=== PATIENT | female | born 1940 | race Caucasian/White ===

== ENCOUNTER → 2016-02-21 | Outpatient (CLI) | payer BC ==
[~2016-02-21] MED LIST: ASPI1CHW26 PO; CLTP PO; CLX20 PO; CZR50 PO; GLUCTAB7 PO; HYZ/50125 PO; LEVO88TA4 PO; LUTE15CA PO; MEGA B PO; MULT-190 PO; MULT-506 PO; OMEG10007 PO; POTA-327 PO; PRAV20TA PO
--- NOTE | 2016-02-21 13:46 | MAMMOGRAPHY REPORT ---
BILATERAL DIGITAL SCREENING MAMMOGRAM WITH CAD: 02/21/2016 CLINICAL HISTORY: Routine screening. Patient has no complaints. TECHNIQUE: Current study was also evaluated with a Computer Aided Detection (CAD) system. Bilatera l CC and MLO views were obtained. COMPARISON: Comparison is made to exams dated: 01/04/2015 mammogram, 12/14/2012 mammogram, 01/04/20 14 mammogram, 11/14/2011 mammogram, 11/07/2010 mammogram, and 11/06/2009 mammogram - [facility]. BREAST COMPOSITION: The tissue of both breasts is almost entirely fatty. FINDINGS: No suspicious masses, calcifications, or areas of architectural distortion are noted in e ither breast. There has been no significant interval change compared to prior exams. IMPRESSION: ACR BI-RADS CATEGORY 1: NEGATIVE There is no mammographic evidence of malignancy. A 1 year screening mammogram is recommended. The p atient will receive written notification of the results. Approximately 10% of breast cancers are not detected with mammography. A negative mammographic repor t should not delay biopsy if a clinically suggestive mass is present. Sravanthi Bey M.D. ah/:02/21/2016 12:22:27 Prick Stitcher: Li SMITH(Zaar)(M), [facility] letter sent: Normal 1/2 BI-RADS Code: ACR BI-RADS Category 1: Negative
== END | disposition home or self-care (01) ==
LOC: C.MAMM 10:47
PROVIDERS: ATTEND Family Medicine
DX: Z12.31 Encounter for screening mammogram for malignant neoplasm of breast (principal)

== ENCOUNTER → 2017-02-23 | Outpatient (CLI) | payer BC ==
[~2017-02-23] MED LIST changes: -CLTP PO; -CZR50 PO; -GLUCTAB7 PO; +LEVO100T7 PO; -LEVO88TA4 PO; -LUTE15CA PO; -MEGA B PO; -MULT-190 PO; -OMEG10007 PO
--- NOTE | 2017-02-23 15:09 | MAMMOGRAPHY REPORT ---
BILATERAL DIGITAL SCREENING MAMMOGRAM TOMOSYNTHESIS WITH CAD: 02/23/2017 CLINICAL HISTORY: Routine screening. Patient has no complaints. TECHNIQUE: Breast tomosynthesis in addition to standard 2D mammography was performed. Current study was also evaluated with a Computer Aided Detection (CAD) system. COMPARISON: Comparison is made to exams dated: 02/21/2016 mammogram, 01/04/2015 mammogram, 01/03/2014 mammogram, 12/14/2012 mammogram, 11/14/2011 mammogram, and 11/07/2010 mammogram - [facility]. BREAST COMPOSITION: The tissue of both breasts is almost entirely fatty. FINDINGS: There are minimal vascular calcifications and a few round benign-appearing microcalcificati ons in the breasts. No suspicious mass, architectural distortion or cluster of suspicious microcalci fications is seen. IMPRESSION: ACR BI-RADS CATEGORY 1: NEGATIVE There is no mammographic evidence of malignancy. A 1 year screening mammogram is recommended. The pa tient will receive written notification of the results. Approximately 10% of breast cancers are not detected with mammography. A negative mammographic report should not delay biopsy if a clinically suggestive mass is present. Reina Figueroa M.D. ay/:02/23/2017 13:28:49 Quality Control Manager: Li SMITH(Zara)(M), [facility] letter sent: Normal 1/2 BI-RADS Code: ACR BI-RADS Category 1: Negative
== END | disposition home or self-care (01) ==
LOC: C.MAMM 11:42
PROVIDERS: ATTEND Family Medicine
DX: Z12.31 Encounter for screening mammogram for malignant neoplasm of breast (principal)

== ENCOUNTER → 2017-04-21 | Outpatient (CLI) | payer BC ==
--- NOTE | 2017-04-21 15:00 | DIAGNOSTIC IMAGING REPORT ---
CHEST 2 VIEWS ROUTINE CLINICAL HISTORY: SOB dyspnea COMPARISON STUDY: No previous studies for comparison. FINDINGS: Mild emphysematous change. The lungs are considered clear. No focal infiltrate. No significant cardiac enlargement. Moderate degenerative change thoracic spine. IMPRESSION: Mild emphysematous change. No acute process. The above report was generated using voice recognition software. It may contain grammatical, syntax or spelling errors. Electronically signed by: Trevor Taveras M.D. 04/21/2017 2:58 PM Dictated Date/Time: 04/21/2017 2:58 PM
[2017-04-21 17:00] LABS: BASO % 0.6 %; BASO ABS # 0.04 K/uL (0-0.2); EOS % 2.8 %; EOS ABS # 0.18 K/uL (0-0.5); HEMATOCRIT 39.1 % (37-47); HEMOGLOBIN 13.3 g/dL (12.0-16.0); IG# 0.01 K/uL (0.00-0.02); LYMPH % 28.9 %; LYMPH ABS # 1.85 K/uL (1.2-3.4); MEAN CELL VOLUME 88.7 fL (80-100); MEAN CORPUSCULAR HEMOGLOBIN 30.2 pg (25-34); MEAN PLATELET VOLUME 12.4 fL (7.4-10.4); MONO % 9.8 %; MONO ABS # 0.63 K/uL (0.11-0.59); NEUT % 57.7 %; PLATELET COUNT 266 K/uL (130-400); RED CELL DISTRIBUTION WIDTH CV 14.4 % (11.5-14.5); RED CELL DISTRIBUTION WIDTH SD 46.7 fL (36.4-46.3); WHITE BLOOD COUNT 6.41 K/uL (4.8-10.8)
[2017-04-21 17:09] LABS: ALT/SGPT 28 U/L (12-78); AST/SGOT 23 U/L (15-37); BLOOD UREA NITROGEN 17 mg/dl (7-18); CALCIUM 9.2 mg/dl (8.5-10.1); CARBON DIOXIDE 24 mmol/L (21-32); GLUCOSE 78 mg/dl (70-99); POTASSIUM 3.5 mmol/L (3.5-5.1); SODIUM 137 mmol/L (136-145)
[2017-04-21 17:20] LABS: ALKALINE PHOSPHATASE 90 U/L (45-117); CHOLESTEROL 166 mg/dl (0-200); LDL CHOLESTEROL CALCULATED 84 mg/dl; TOTAL PROTEIN 7.8 gm/dl (6.4-8.2)
== END | disposition home or self-care (01) ==
LOC: C.RADBC 14:29
PROVIDERS: ATTEND Physician Assistant Medical
DX: R06.02 Shortness of breath (principal); I10 Essential (primary) hypertension; E03.9 Hypothyroidism, unspecified

== ENCOUNTER → 2017-04-28 | Outpatient (CLI) | payer BC ==
[~2017-04-28] MED LIST changes: +CZR50; +LEVO88TA PO
[2017-04-28 18:09] LABS: BLOOD UREA NITROGEN 18 mg/dl (7-18); CALCIUM 9.2 mg/dl (8.5-10.1); CARBON DIOXIDE 24 mmol/L (21-32); CREATININE 0.76 mg/dl (0.60-1.20); GLUCOSE 76 mg/dl (70-99); POTASSIUM 3.8 mmol/L (3.5-5.1); SODIUM 139 mmol/L (136-145)
== END | disposition home or self-care (01) ==
LOC: C.LAB 17:09
PROVIDERS: ATTEND Physician Assistant Medical
DX: I10 Essential (primary) hypertension (principal)

== ENCOUNTER → 2017-06-09 | Outpatient (CLI) | payer BC ==
[~2017-06-09] MED LIST changes: -HYZ/50125 PO; -LEVO100T7 PO; -POTA-327 PO
== END | disposition home or self-care (01) ==
LOC: C.LAB 15:48
PROVIDERS: ATTEND Physician Assistant Medical
DX: E03.9 Hypothyroidism, unspecified (principal)

== ENCOUNTER → 2017-07-07 | Outpatient (CLI) | payer BC ==
[~2017-07-07] VITALS: Ht 158.8 cm; Wt 72.3 kg
[2017-07-07 15:58] VITALS: BP 168/84; PULSE 61; Ht 158.8 cm; Wt 72.3 kg
== END | disposition home or self-care (01) ==
LOC: C.NEUR 14:54
PROVIDERS: ATTEND Internal Medicine Pulmonary Disease
DX: G47.21 Circadian rhythm sleep disorder, delayed sleep phase type (principal); G47.00 Insomnia, unspecified

== ENCOUNTER → 2017-10-02 | Outpatient (CLI) | payer BC ==
--- NOTE | 2017-10-02 13:07 | DIAGNOSTIC IMAGING REPORT ---
L-SPINE MIN 4 VIEWS ROUTINE HISTORY: Trauma. Pain. W19.XXXA FallM54.5 Low back [id number] COMPARISON: None. FINDINGS: There is no fracture. Mild degenerative scoliosis. Degenerative disc changes throughout. No evidence for compression deformity. IMPRESSION: Considerable degenerative disc change. Scoliosis. No acute process. The above report was generated using voice recognition software. It may contain grammatical, syntax or spelling errors. Electronically signed by: Trevor Taveras M.D. 10/02/2017 1:06 PM Dictated Date/Time: 10/02/2017 1:04 PM
--- NOTE | 2017-10-02 13:11 | DIAGNOSTIC IMAGING REPORT ---
L HIP UNILATERAL 2 VIEWS CLINICAL HISTORY: W19.XXXA FallM54.5 Low back painM25.552 Left hip [id number] COMPARISON: None. DISCUSSION: Mild degenerative narrowing left hip joint space. No evidence for acetabular protrusion. Bony mineralization is normal. No lytic or blastic process. There is no evidence for soft tissue swelling. IMPRESSION: Mild degenerative narrowing left hip joint space. Otherwise negative study. The above report was generated using voice recognition software. It may contain grammatical, syntax or spelling errors. Electronically signed by: Trevor Taveras M.D. 10/02/2017 1:10 PM Dictated Date/Time: 10/02/2017 1:09 PM
--- NOTE | 2017-10-02 13:44 | DIAGNOSTIC IMAGING REPORT ---
LEFT FOOT 3 VIEWS CLINICAL HISTORY: Fall with left foot pain. FINDINGS: 3 views of the left foot are obtained. No prior studies are available for comparison at the time of dictation. The skeletal structures are osteopenic. No fracture is seen. Mild osteoarthritic change is present at the first metatarsophalangeal joint. Mild degenerative spurring is seen along the dorsal aspect of the tarsal bones. A tiny plantar calcaneal enthesophyte is noted. The overlying soft tissues are within normal limits. IMPRESSION: Osteopenia and mild degenerative change as above. No acute bony abnormality is seen. Electronically signed by: Dionisio Regalado M.D. 10/02/2017 1:43 PM Dictated Date/Time: 10/02/2017 1:42 PM
== END | disposition home or self-care (01) ==
LOC: C.RADBC 12:27
PROVIDERS: ATTEND Nurse Practitioner Adult Health
DX: M79.672 Pain in left foot (principal); W19.XXXA Unspecified fall, initial encounter; M25.552 Pain in left hip; M54.5 Low back pain; M85.872 Other specified disorders of bone density and structure, left ankle and foot; M41.9 Scoliosis, unspecified

== ENCOUNTER 2019-02-25 15:57 | Observation (INO) ==
[2019-02-25] MEDS ORDERED: SODIUM CHLORIDE 0.9% 500 ML IV ONE (16:14)
[2019-02-25 17:03] LABS: Basophils # (auto) 0.03 K/uL (0-0.2); Basophils % (auto) 0.5 %; Eosinophils % (auto) 1.8 %; Hematocrit (blood only) 39.5 % (37-47); Hemoglobin 13.4 g/dL (12.0-16.0); Immature Granulocytes # (auto) 0.01 K/uL (0.00-0.02); Immature Granulocytes % (auto) 0.2 %; Lymphocytes # (auto) 1.95 K/uL (1.2-3.4); Lymphocytes % (auto) 35.7 %; Mean Corpuscular Hgb Conc 33.9 g/dL (32-36); Mean Corpuscular Volume 91.4 fL (80-100); Mean Platelet Volume 10.5 fL (7.4-10.4); Monocytes # (auto) 0.51 K/uL (0.11-0.59); Monocytes % (auto) 9.3 %; Neutrophils # (auto) 2.86 K/uL (1.4-6.5); Neutrophils % (auto) 52.5 %; Platelet Count 295 K/uL (130-400); RDW Coefficient of Variation 13.4 % (11.5-14.5); RDW Standard Deviation 44.8 fL (36.4-46.3); Red Blood Count 4.32 M/uL (4.2-5.4); White Blood Count 5.46 K/uL (4.8-10.8)
--- NOTE | 2019-02-25 17:05 | XRay Report ---
XR chest 1V portable CLINICAL HISTORY: Atypical chest pain COMPARISON STUDY: 04/21/2017 FINDINGS: The cardiac and mediastinal contours are normal. There is no evidence of focal pulmonary co nsolidation. There is no evidence of failure. No pleural effusions are visualized.[ IMPRESSION: No active disease in the chest. ACT 112: Negative or not required by law. Electronically signed by: Leno Rosales M.D. 02/25/2019 5:04 PM
[2019-02-25 17:28] LABS: Alanine Aminotransferase 30 U/L (12-78); Albumin Level 3.4 gm/dl (3.4-5.0); Aspartate Aminotransferase 25 U/L (15-37); BUN Creatinine Ratio 19.4 (10-20); Blood Urea Nitrogen 16 mg/dl (7-18); Calcium 8.9 mg/dl (8.5-10.1); Carbon Dioxide 26 mmol/L (21-32); Chloride 110 mmol/L (98-107); Creatinine Clr Calc Pharmacy 51.2 ml/min; Est GFR (African American) 78.8; Glucose 78 mg/dl (70-99); Lipase 62 U/L (73-393); Magnesium 2.4 mg/dl (1.8-2.4); Potassium 3.6 mmol/L (3.5-5.1); Sodium 139 mmol/L (136-145)
[2019-02-25 17:39] LABS: Alkaline Phosphatase 117 U/L (45-117); Bilirubin,Total 0.5 mg/dl (0.2-1); Globulin 3.5 gm/dl (2.5-4.0); Phosphorus 3.7 mg/dl (2.5-4.9); Total Protein 6.9 gm/dl (6.4-8.2); Troponin I < 0.015 ng/ml (0-0.045)
[2019-02-25] MEDS ORDERED: OPTIRAY 320 125ml IV PRN (17:39)
--- NOTE | 2019-02-25 17:51 | CT Scan Report ---
CT head/brain wo con CLINICAL HISTORY: Transient aphasia, global paralysis COMPARISON STUDY: 12-27 TECHNIQUE: Axial CT of the brain is performed from the vertex to the skull base. IV contrast was not administered for this examination. A dose lowering technique was utilized adhering to the principles of ALARA. CT DOSE: 1010.49 mGy.cm FINDINGS: No intra or extra-axial mass lesions are visualized. There is no CT evidence of acute cortical infarc tion. There is no evidence of midline shift. There is no acute hemorrhage. No calvarial fractures ar e visualized. There are minor white matter hypodensities likely on a small vessel basis. There is no evidence of pathologic ventricular dilatation. There is no evidence of acute sinusitis IMPRESSION: No acute intracranial findings ACT 112: Negative or not required by law. Electronically signed by: Leno Rosales M.D. 02/25/2019 5:49 PM
--- NOTE | 2019-02-25 17:54 | CT Scan Report ---
CT angio head w con CLINICAL HISTORY: Transient aphasia, global paralysis TECHNIQUE: CT angiography of the head was performed in a dynamic helical fashion during intravenous a dministration of 119 cc of Optiray 320. MIP imaging was performed. A dose lowering technique was util ized adhering to the principles of ALARA. CT DOSE: COMPARISON STUDY: No previous studies for comparison. FINDINGS: There are no lesion suspicious for aneurysm. There are no major intracranial branch occlusi ons. The dural venous sinuses appear patent. IMPRESSION: Normal study. ACT 112: Negative or not required by law. Electronically signed by: Leno Rosales M.D. 02/25/2019 5:53 PM
[2019-02-25 18:03] LABS: Appearance Urine Clear (Clear); Bilirubin Urine Negative (Negative); Blood Urine Negative (Negative); Color Urine Dark Yellow; Glucose Urine UA Negative (Negative); Ketones Urine Negative (Negative); Leukocyte Esterase Urine Negative (Negative); Nitrite Urine Negative (Negative); Protein Urine Negative (Negative); Specific Gravity Urine 1.019 (1.000-1.030); Urobilinogen Urine Negative (Negative)
--- NOTE | 2019-02-25 18:03 | CT Scan Report ---
CT angio neck with con CLINICAL HISTORY: Transient aphasia, global paralysis COMPARISON STUDY: No previous studies for comparison. TECHNIQUE: CT angiography was performed from the aortic arch to the skull base. MIP imaging was perfo rmed. The patient was scanned in a dynamic helical fashion during intravenous administration of 119 c c of Optiray 320. A dose lowering technique was utilized adhering to the principles of ALARA. CT DOSE: Technique: CT angiogram of the carotid and vertebral arteries was obtained using intravenous contrast and 3-D reconstruction. NASCET criteria was utilized. Findings: The right carotid revealed no evidence of aneurysm and no evidence of dissection. There is no evidenc e of hemodynamic significant stenosis. Note is made of a 50% stenosis of the right external carotid a rtery origin. The left carotid revealed no evidence of hemodynamic significant stenosis. There is no evidence of an eurysm. There is no evidence of dissection. There is moderate atheromatous calcification at the level of the left carotid bulb. There is no evidence of hemodynamically significant vertebral stenosis. There is no evidence of verte bral dissection. IMPRESSION: No evidence of hemodynamically significant carotid or vertebral artery stenosis. No evidence of disse ction. ACT 112: Negative or not required by law. Electronically signed by: Leno Rosales M.D. 02/25/2019 6:01 PM
--- NOTE | 2019-02-25 19:06 | History & Physical Report ---
Date of Service February 25, 2019 Assessment & Plan (1) Stroke-like symptoms: (2) Dizziness: Pt is 78 y/o F with PMH HTN, dyslipidemia, hypothyroidism, depression presented to ER with c/o episode of blurry vision on 02/24/19 at 2:00AM with weakness, and could not speak lasting 5 seconds. Since with intermittent dizziness described as room spinning and intermittent generalized MARLEY since yesterday. DDX: TIA, stroke, vertigo In ER afebrile, P: 74, BP: 204/92, 96% on RA. No leukocytosis, H/H: 13/39, UA unremarkable, negative troponin CT HEAD:No acute intracranial findings CTA HEAD: No lesion suspicious for aneurysm. There are no major intracranial branch occlusions. The dural venous sinuses appear patent. CTA NECK: The right carotid revealed no evidence of aneurysm and no evidence of dissection. There is no evidence of hemodynamic significant stenosis. Note is made of a 50% stenosis of the right external carotid artery origin. The left carotid revealed no evidence of hemodynamic significant stenosis. There is no evidence of aneurysm. There is no evidence of dissection. There is moderate atheromatous calcification at the level of the left carotid bulb. There is no evidence of hemodynamically significant vertebral stenosis. There is no evidence of vertebral dissection. -Tele to monitor for arrhythmias -EKG in am -Lipid, A1c in am -MRI brain -Will hold on Echo at this time. Pt had stress echo 11/2018: no inducible ischemia, EF: 55-59%, grade 1 diastolic dysfunction, mild mitral regurgitation, mild tricuspid regurgitation; plan to do echo with bubble study if stroke noted on MRI -PT/OT consult - PT consult also to evaluate vertigo and possible Kala maneuver -Continue statin -Start aspirin -allow permissive HTN with clonidine prn SBP>180 -Trial of Meclizine prn dizziness -neurology consult (3) HTN (hypertension): -Will allow permissive HTN at this time. BP may also be elevated secondary to anxiety -Continue telmisartan -Clonidine prn SBP >180 (4) Dyslipidemia: -Continue statin (5) Hypothyroidism: TSH: 2.5 -Continue levothyroxine (6) Depression: Hx Depression, anxiety. Follows with psych - Dr Thao -Continue bupropion -Pt reports doesn't take buspirone DVT Prophylaxis -Lovenox SQ Full Code as per discussion with pt Follows with Dr Raghu Armenta for routine care Pt was seen and care coordinated with Dr Emanuel. See addendum History of Present Illness Chief Complaint: Visual disturbance, dizziness Primary Care Provider: Raghu Armenta DO Pt is 78 y/o F with PMH HTN, dyslipidemia, hypothyroidism, depression presented to ER with c/o episode of visual disturbance. Pt states on 02/24/19 at 2:00AM was up watching TV when she had episode of blurry vision, pt thinks it was both eyes. At the same time describes generalized weakness ("Like a piece of ribbon candy") and felt like she couldn't move, and could not speak. Reports these symptoms lasted for 5 seconds and then resolved. After had nausea and epigastric discomfort which has persisted until this evening. Also reports intermittent dizziness which she describes as room spinning and is aggravated with sitting up or walking. C/O intermittent generalized MARLEY since yesterday. Currently denies MARLEY. Reports 3 episodes of loose stools yesterday. Yesterday ate 4 small cinnamon rolls, today only had hot chocolate this evening while in ER. Denies feve r/chills, diaphoresis, N/V/C, syncope, neck pain, CP, SOB, orthopnea, palpitations, cough, sore throat, choking, otalgia, rhinorrhea, paresthesias, extremity edema, rashes, urinary symptoms. Allergies Allergy/AdvReac Type Severity Reaction Status Date / Time mold Allergy Unknown SHORTNESS Unverified 02/25/19 17:31 OF BREATH morphine Allergy Unknown ? Verified 02/25/19 17:31 shellfish derived Allergy Unknown ANAPHYLAXIS Unverified 02/25/19 17:31 Dust Allergy Unknown SHORTNESS Uncoded 02/25/19 17:31 OF BREATH Home Medications Home Medications Medication Instructions Recorded Confirmed Type bupropion HCl 150 mg PO QAM 02/25/19 02/25/19 History buspirone 5 mg PO HS PRN 02/25/19 02/25/19 History levothyroxine [Synthroid] 88 mcg PO HS 02/25/19 02/25/19 History lutein 0 mg PO QAM 02/25/19 02/25/19 History multivitamin with minerals 1 tab PO QAM 02/25/19 02/25/19 History [One-A-Day Maximum Formula] omega 1-bhj-obw-fish oil [[place]-3] 1 cap PO QAM 02/25/19 02/25/19 History omeprazole 20 mg PO QAM 02/25/19 02/25/19 History pravastatin 40 mg PO HS 02/25/19 02/25/19 History telmisartan 40 mg PO QAM 02/25/19 02/25/19 History vitamin B complex 1 tab PO QAM 02/25/19 02/25/19 History Past Med/Surg History Medical History Depression Dyslipidemia HTN (hypertension) Hypothyroidism Surgical History History of hysterectomy Family History Other Breast cancer Heart disease Social History Preferred Language: Lao Communication Ability: Effective Beliefs That Will Affect Care: None Current Living Situation: Spouse Current Living Situation Comment: [facility] Other Information That Helps Us Care for You: No Feels Safe at Home: Yes Safety Concerns: Feels Safe At This Time Smoking Status: Former smoker Hx Alcohol Use: No Hx Substance Use: No Review of Systems Review of Systems: All systems reviewed & are unremarkable except as noted in HPI & below Physical Exam Physical Exam: General: no distress, WDWN Head: normocephalic, atraumatic Eyes: PERRL, EOM's intact, +slight horizontal nystagmus noted, conjunctiva non-injected, anicteric ENT: somewhat hard of hearing (does not have hearing aids in place), normal inspection external ears, nose, mucous membranes moist Neck: supple, trachea midline, non-tender, ROM intact Lungs: clear, no respiratory distress, no wheezing/rhonchi/rales CV: RRR, no murmur, no JVD, no pretibial edema Abd: normal BS, soft, non-tender Ext: no cyanosis, no calf tenderness Neuro: A&O x 3, Facial sensation is intact and symmetric, The face is strong and symmetric, no dysarthria, Shoulder shrug intact, tongue is midline, normal movement, no fasciculations, Muscle tone normal. Strength 5/5 bilateral upper and lower extremities finger to nose intact, no pronator drift. normal affect Skin: warm, dry Results & Data Vital Signs (Past 12 Hours) Vital Signs Temp Pulse Resp BP Pulse Ox 02/25/19 18:00 77 19 197/80 H 02/25/19 17:51 193/76 H 02/25/19 17:30 73 20 244/98 H 100 02/25/19 17:04 68 22 234/96 H 100 02/25/19 17:00 68 17 100 02/25/19 16:47 69 21 02/25/19 16:40 74 16 96 02/25/19 16:01 36.7 C 74 16 204/92 H 96 Laboratory Results Short CBC 02/25/19 Range/Units 16:52 WBC 5.46 (4.8-10.8) K/uL Hgb 13.4 (12.0-16.0) g/dL Hct 39.5 (37-47) % Plt Count 295 (130-400) K/uL BMP 02/25/19 16:52 Sodium 139 Potassium 3.6 Chloride 110 H Carbon Dioxide 26 BUN 16 Creatinine 0.83 Glucose 78 Calcium 8.9 Cardiac Enzymes 02/25/19 Range/Units 16:52 Troponin I < 0.015 (0-0.045) ng/ml Liver Function 02/25/19 Range/Units 16:52 Total Bilirubin 0.5 (0.2-1) mg/dl AST 25 (15-37) U/L ALT 30 (12-78) U/L Alkaline Phosphatase 117 (45-117) U/L Albumin 3.4 (3.4-5.0) gm/dl Urine 02/25/19 Range/Units 17:00 Urine Color Dark Yellow Urine Appearance Clear (Clear) Urine pH 6.0 (4.5-7.5) Ur Specific [place] 1.019 (1.000-1.030) Urine Protein Negative (Negative) Urine Glucose (UA) Negative (Negative) Diagnostic Findings CT HEAD: IMPRESSION: No acute intracranial findings CTA HEAD: FINDINGS: There are no lesion suspicious for aneurysm. There are no major intracranial branch occlusions. The dural venous sinuses appear patent. CTA NECK: Findings: The right carotid revealed no evidence of aneurysm and no evidence of dissection. There is no evidence of hemodynamic significant stenosis. Note is made of a 50% stenosis of the right external carotid artery origin. The left carotid revealed no evidence of hemodynamic significant stenosis. There is no evidence of aneurysm. There is no evidence of dissection. There is moderate atheromatous calcification at the level of the left carotid bulb. There is no evidence of hemodynamically significant vertebral stenosis. There is no evidence of vertebral dissection. IMPRESSION: No evidence of hemodynamically significant carotid or vertebral artery stenosis. No evidence of dissection. CXR: IMPRESSION: No active disease in the chest. ECG Rate (beats per minute): 68 Rhythm: sinus rhythm Findings: + PAC and + RBBB Additional Comments: RBBB noted on prior EKG Code Status & VTE Plan VTE Prophylaxis Plan VTE Prophylaxis will be ordered: Yes Supervising Physician Co-Signing Physician Notes HISTORY: Record reviewed. Patient interviewed and examined. Care coordinated with Hui Munguia PA-C. Please refer to her documentation for complete history. Briefly, 78 YO F with history of hypertension and dyslipidemia. Episode of blurred vision and difficulty speaking early yesterday morning that lasted for short period of time, followed by intermittent vertigo. Diffuse mild headache. Seen in clinic today and referred to ED for evaluation. EXAM: General- no distress VS- HR 74 RR 16 BP 204/92 @ 1601 Lungs- clear to auscultation; no respiratory distress Cardiovascular- RRR; no murmur; no gallop; no JVD; no pretibial edema Abdomen- + bowel sounds, soft, nontender Extremities- no cyanosis; no calf tenderness Neuro- alert, oriented; PERRL, EOMI, nystagmus with right lateral gaze; no facial palsy; no dysarthria or aphasia; motor strength 5/5 bilat; patellar DTR's 1/2 bilat Skin- warm & dry DATA: Hemoglobin 13.4, white count 5460, platelet count 295,000. Normal electrolytes, BUN 16, creatinine 0.83, glucose 78. UA negative. Other lab studies as noted. Chest x-ray negative. CT chest showed mild small vessel ischemic changes, no apparent acute event. CTA head negative for significant stenoses or aneurysm. CTA neck showed 50% stenosis of right external carotid artery, plaque without significant stenosis of internal carotid arteries, no evidence of aneurysm or dissection. EKG performed at [facility] reviewed and demonstrated sinus rhythm at 70/ minute, PACs, right bundle branch block. ASSESSMENT AND PLAN: Neuro symptoms as noted. CT head negative. CTA head and neck showed plaque in carotid arteries without significant stenosis. Ongoing intermittent vertigo. Possible TIA. Check MRI. Antiplatelet therapy with ASA. Check lipid profile and Rx aggressively in light of carotid plaque. Consult Neuro. PT / OT evals, including vestibular maneuvers. History of hypertension. BP elevation could be reactive / episodic. Continue telmisartan. Clonidine PRN for significant elevations. Follow and titrate therapy. Please refer to ADIS Munguia's documentation for discussion of other issues.
[2019-02-25] MEDS ORDERED: MECLIZINE 12.5 MG TAB PO PRN (20:37)
[2019-02-25] MEDS ORDERED: cloNIDine HCL 0.1 MG TAB PO PRN (20:37)
[2019-02-25] MEDS ORDERED: ACETAMINOPHEN 325 MG TAB PO PRN (20:37)
[2019-02-25] MEDS ORDERED: PHARMACIST DISCHARGE MED REC CONSULT PRN (20:37)
[2019-02-25] MEDS: LEVOTHYROXINE SODIUM 88 MCG TABLET PO SCH (21:47)
[2019-02-25] MEDS: ENOXAPARIN INJ 40 MG/0.4 ML SYR SQ SCH (21:47)
[2019-02-25] MEDS: PRAVASTATIN SOD 40 MG TAB PO SCH (21:47)
--- NOTE | 2019-02-25 22:27 | Magnetic Resonance Report ---
MRI OF THE BRAIN WITHOUT CONTRAST CLINICAL HISTORY: Dizziness, weakness, possible stroke COMPARISON STUDY: Head CT dated 02/25/2019 FINDINGS: Sagittal T1, axial diffusion, proton density and T2 weighted axial, coronal FLAIR, and axial T1-weigh yadira images were acquired. No intra or extra-axial mass lesions are visualized Axial diffusion-weighted images reveal no evidence of acute or subacute infarction. There is no evidence of ventricular dilatation. Proton density T2-weighted and FLAIR images reveal scattered foci of increased T2 signal within the w maia matter, likely on a small vessel basis. There are no abnormal flow voids. Prominent CSF at the level the convexities is felt to be secondary to volume loss. IMPRESSION: 1. No acute intracranial findings 2. No evidence of acute or subacute infarction 3. No evidence of intracranial mass on this noncontrast study. ACT 112: Negative or not required by law. Electronically signed by: Leno Rosales M.D. 02/25/2019 10:25 PM
--- NOTE | 2019-02-25 23:07 | Emergency Department Note ---
Entered by Brittny Gaston acting as a scribe for Semaj Baez MD History of Present Illness General Chief complaint: Hypertension Stated complaint: HIGH BLOOD PRESSURE Time Seen by Provider: 02/25/19 16:14 Source: patient History of Present Illness Provider complaint: weakness Onset (ago): day(s) 2 Pain Consistency: + constant Relieved By: + none Exacerbated By: + none Associated symptoms: + loss of appetite, + nausea/vomiting (+nausea, -vomiting) and + other (-urinary symptoms, -congestion, +diarrhea); no fever/chills The patient is a 78 year old female who presents to the Emergency Room with complaints of constant weakness for the past 2 days. The patient reports that she had an episode on Thursday night where she could not move her arms and legs and could not speak. She notes that during this episode she was conscious. She mentions that he vision was blurry. The patient reports that this episode lasted less than 5 seconds and has felt nauseous since. She states that since her episode she has felt weak and unsteady which is not normal for her. She mentions that she has not been eating and drinking normally. She states that she has d iarrhea. She denies any vomiting, fever, chills, cough, urinary symptoms, or congestion. The patient states that she saw her PCP today and they referred her to the ED. Home Medications Home Medications Medication Instructions Recorded Confirmed Type bupropion HCl 150 mg PO QAM 02/25/19 02/25/19 History buspirone 5 mg PO HS PRN 02/25/19 02/25/19 History levothyroxine [Synthroid] 88 mcg PO HS 02/25/19 02/25/19 History lutein 0 mg PO QAM 02/25/19 02/25/19 History multivitamin with minerals 1 tab PO QAM 02/25/19 02/25/19 History [One-A-Day Maximum Formula] omega 3-bab-tin-fish oil [[place]-3] 1 cap PO QAM 02/25/19 02/25/19 History omeprazole 20 mg PO QAM 02/25/19 02/25/19 History pravastatin 40 mg PO HS 02/25/19 02/25/19 History telmisartan 40 mg PO QAM 02/25/19 02/25/19 History vitamin B complex 1 tab PO QAM 02/25/19 02/25/19 History Allergies Allergy/AdvReac Type Severity Reaction Status Date / Time mold Allergy Unknown SHORTNESS Unverified 02/25/19 17:31 OF BREATH morphine Allergy Unknown ? Verified 02/25/19 17:31 shellfish derived Allergy Unknown ANAPHYLAXIS Unverified 02/25/19 17:31 Dust Allergy Unknown SHORTNESS Uncoded 02/25/19 17:31 OF BREATH Past Med/Surg History Medical History Depression Dyslipidemia HTN (hypertension) Hypothyroidism Surgical History History of hysterectomy Family History Other Breast cancer Heart disease Social History Preferred Language: Telugu Communication Ability: Effective Beliefs That Will Affect Care: None Current Living Situation: Spouse Current Living Situation Comment: [facility] Other Information That Helps Us Care for You: No Feels Safe at Home: Yes Safety Concerns: Feels Safe At This Time Smoking Status: Former smoker Hx Alcohol Use: No Hx Substance Use: No Review of Systems See HPI for pertinent positives & negatives. and A total of 10 systems reviewed and were otherwise negative Physical Exam Vital Signs Vital Signs - 24 hr 02/25/19 16:01 02/25/19 16:40 02/25/19 16:47 Temperature 36.7 C Temperature Source Oral Pulse Rate 74 74 69 Pulse Rate from SpO2 Sensor Pulse Rhythm Regular Regular Pulse Strength Normal Respiratory Rate 16 16 21 Respiratory Effort / Characteristics Non-Labored Respiratory Depth Normal Respiratory Pattern Regular Blood Pressure 204/92 H Blood Pressure Mean 129 Blood Pressure Position Sitting Pulse Oximetry 96 96 Oxygen Delivery Method Room Air Room Air Sepsis Recent Fever Within 48 Hours No Sepsis Action Taken by Nursing No Action Required 02/25/19 17:00 02/25/19 17:04 02/25/19 17:30 Temperature Temperature Source Pulse Rate 68 68 73 Pulse Rate from SpO2 Sensor 67 67 70 Pulse Rhythm Pulse Strength Respiratory Rate 17 22 20 Respiratory Effort / Characteristics Respiratory Depth Respiratory Pattern Blood Pressure 234/96 H 244/98 H Blood Pressure Mean 117 115 Blood Pressure Position Pulse Oximetry 100 100 100 Oxygen Delivery Method Sepsis Recent Fever Within 48 Hours Sepsis Action Taken by Nursing 02/25/19 17:51 02/25/19 18:00 02/25/19 18:30 Temperature Temperature Source Pulse Rate 77 77 Pulse Rate from SpO2 Sensor Pulse Rhythm Pulse Strength Respiratory Rate 19 22 Respiratory Effort / Characteristics Respiratory Depth Respiratory Pattern Blood Pressure 193/76 H 197/80 H 219/95 H Blood Pressure Mean 132 130 104 Blood Pressure Position Pulse Oximetry Oxygen Delivery Method Sepsis Recent Fever Within 48 Hours Sepsis Action Taken by Nursing 02/25/19 18:33 02/25/19 18:35 02/25/19 19:00 Temperature Temperature Source Pulse Rate 78 77 78 Pulse Rate from SpO2 Sensor Pulse Rhythm Pulse Strength Respiratory Rate 19 22 18 Respiratory Effort / Characteristics Respiratory Depth Respiratory Pattern Blood Pressure 234/128 H 234/89 H 221/97 H Blood Pressure Mean 169 118 139 Blood Pressure Position Pulse Oximetry Oxygen Delivery Method Sepsis Recent Fever Within 48 Hours Sepsis Action Taken by Nursing GENERAL: Awake, alert, fatigued appearing, in no distress HENT: Normocephalic, atraumatic. Oropharynx with dry mucous membranes and otherwise unremarkable. EYES: Normal conjunctiva. Sclera non-icteric. EOMI. No nystamgus. PEARRL. NECK: Supple. No nuchal rigidity. FROM. No JVD. RESPIRATORY: CTAB CARDIAC: Regular rate, normal rhythm. Extremities warm and well perfused. Pulses equal. ABDOMEN: Soft, non-distended. No tenderness to palpation. No rebound or guarding. No masses. RECTAL: Deferred. MUSCULOSKELETAL: Chest examination reveals no tenderness. The back is symmetrical on inspection without obvious abnormality. There is no CVA tenderness to palpation. No joint edema. LOWER EXTREMITIES: Calves are equal size bilaterally and non-tender. No edema. No discoloration. NEURO: Normal sensorium. No sensory or motor deficits noted. 5/5 strength and S ILT x4 extremities. Cerebellar function intact, including finger to nose, alternating palms, heel to mercado. SKIN: No rash or jaundice noted. Course Course 1624: The patient was evaluated in room C10, and a complete history and physical examination were performed. 1800: I reviewed the patient's case with Hui Moran. [facility] will evaluate the patient for further management. Administered Medications Enoxaparin Sodium (Lovenox) 40 mg SQ Q24H TUSHAR Stop: 03/27/19 20:59 Last Admin: 02/25/19 21:47 Dose: 40 mg Documented by: [id number] Levothyroxine Sodium (Synthroid) 88 mcg PO HS TUSHAR Stop: 03/27/19 20:59 Last Admin: 02/25/19 21:47 Dose: 88 mcg Documented by: [id number] Pravastatin Sodium (Pravachol) 40 mg PO HS TUSHAR Stop: 03/27/19 20:59 Last Admin: 02/25/19 21:47 Dose: 40 mg Documented by: [id number] Discontinued Medications Sodium Chloride (Nss) 500 mls @ 999 mls/hr IV .Q31M ONE Stop: 02/25/19 16:44 Last Infusion: 02/25/19 17:31 Dose: 0 mls/hr Documented by: [id number] Admin: 02/25/19 16:55 Dose: 999 mls/hr Documented by: [id number] Ioversol (Optiray 320 125ml) 119 ml IV ONCE PRN PRN Reason: Interaction Checking Stop: 03/01/19 17:38 Last Admin: 02/25/19 17:39 Dose: 119 ml Documented by: [id number] Medical Decision Making Differential Diagnosis Differential diagnosis: Etiologies such as metabolic, infection, hypo/hyperglycemia, electrolyte abnormalities, cardiac sources, intracerebral event, toxicologic, neurologic, as well as others were entertained. Medical Records Attestation: I reviewed the patient's medical records. Home Medications Current Medication List: was personally reviewed by me Laboratory Data Attestation: I reviewed the patient's lab results. Result diagrams: 02/25/19 16:52 02/25/19 16:52 Lab Results 02/25/19 02/25/19 02/25/19 Range/Units 16:52 16:52 17:00 WBC 5.46 (4.8-10.8) K/uL RBC 4.32 (4.2-5.4) M/uL Hgb 13.4 (12.0-16.0) g/dL Hct 39.5 (37-47) % MCV 91.4 (80-100) fL MCH 31.0 (25-34) pg MCHC 33.9 (32-36) g/dL RDW Std Deviation 44.8 (36.4-46.3) fL RDW Coeff of Anel 13.4 (11.5-14.5) % Plt Count 295 (130-400) K/uL MPV 10.5 H (7.4-10.4) fL Immature Gran % (Auto) 0.2 % Neut % (Auto) 52.5 % Lymph % (Auto) 35.7 % [place] % (Auto) 9.3 % Eos % (Auto) 1.8 % Baso % (Auto) 0.5 % Immature Gran # (Auto) 0.01 (0.00-0.02) K/uL Neut # (Auto) 2.86 (1.4-6.5) K/uL Lymph # (Auto) 1.95 (1.2-3.4) K/uL [place] # (Auto) 0.51 (0.11-0.59) K/uL Eos # (Auto) 0.10 (0-0.5) K/uL Baso # (Auto) 0.03 (0-0.2) K/uL Sodium 139 (136-145) mmol/L Potassium 3.6 (3.5-5.1) mmol/L Chloride 110 H (98-107) mmol/L Carbon Dioxide 26 (21-32) mmol/L Anion Gap 3.0 (3-11) BUN 16 (7-18) mg/dl Creatinine 0.83 (0.6-1.2) mg/dl Est Cr Clr Drug Dosing 51.2 ml/min Est GFR ( Amer) 78.8 Est GFR (Non-Af Amer) 68.0 BUN/Creatinine Ratio 19.4 (10-20) Glucose 78 (70-99) mg/dl Calcium 8.9 (8.5-10.1) mg/dl Phosphorus 3.7 (2.5-4.9) mg/dl Magnesium 2.4 (1.8-2.4) mg/dl Total Bilirubin 0.5 (0.2-1) mg/dl AST 25 (15-37) U/L ALT 30 (12-78) U/L Alkaline Phosphatase 117 (45-117) U/L Troponin I < 0.015 (0-0.045) ng/ml Total Protein 6.9 (6.4-8.2) gm/dl Albumin 3.4 (3.4-5.0) gm/dl Globulin 3.5 (2.5-4.0) gm/dl Albumin/Globulin Ratio 1.0 (0.9-2) Lipase 62 L (73-393) U/L TSH 2.580 (0.300-4.500) uIu/ml Urine Color Dark Yellow Urine Appearance Clear (Clear) Urine pH 6.0 (4.5-7.5) Ur Specific Richardson 1.019 (1.000-1.030) Urine Protein Negative (Negative) Urine Glucose (UA) Negative (Negative) Urine Ketones Negative (Negative) Urine Blood Negative (Negative) Urine Nitrite Negative (Negative) Urine Bilirubin Negative (Negative) Urine Urobilinogen Negative (Negative) Ur Leukocyte Esterase Negative (Negative) Imaging Data Radiologist's Impression: Radiology results as stated below per my review and the radiologist's interpretation: XR chest 1V portable CLINICAL HISTORY: Atypical chest pain COMPARISON STUDY: 04/21/2017 FINDINGS: The cardiac and mediastinal contours are normal. There is no evidence of focal pulmonary consolidation. There is no evidence of failure. No pleural effusions are visualized.[ IMPRESSION: No active disease in the chest. ACT 112: Negative or not required by law. Electronically signed by: Leno Rosales M.D. 02/25/2019 5:[address] head/brain wo con CLINICAL HISTORY: Transient aphasia, global paralysis COMPARISON STUDY: 12-27 TECHNIQUE: Axial CT of the brain is performed from the vertex to the skull base. IV contrast was not administered for this examination. A dose lowering technique was utilized adhering to the principles of ALARA. CT DOSE: 1010.49 mGy.cm FINDINGS: No intra or extra-axial mass lesions are visualized. There is no CT evidence of acute cortical infarction. There is no evidence of midline shift. There is no acute hemorrhage. No calvarial fractures are visualized. There are minor white matter hypodensities likely on a small vessel basis. There is no evidence of pathologic ventricular dilatation. There is no evidence of acute sinusitis IMPRESSION: No acute intracranial findings ACT 112: Negative or not required by law. Electronically signed by: Leno Rosales M.D. 02/25/2019 5:[address] angio head w con CLINICAL HISTORY: Transient aphasia, global paralysis TECHNIQUE: CT angiography of the head was performed in a dynamic helical fashion during intravenous administration of 119 cc of Optiray 320. MIP imaging was performed. A dose lowering technique was utilized adhering to the principles of ALARA. CT DOSE: COMPARISON STUDY: No previous studies for comparison. FINDINGS: There are no lesion suspicious for aneurysm. There are no major intracranial branch occlusions. The dural venous sinuses appear patent. IMPRESSION: Normal study. ACT 112: Negative or not required by law. Electronically signed by: Leno Rosales M.D. 02/25/2019 5:[address] angio neck with con CLINICAL HISTORY: Transient aphasia, global paralysis COMPARISON STUDY: No previous studies for comparison. TECHNIQUE: CT angiography was performed from the aortic arch to the skull base. MIP imaging was performed. The patient was scanned in a dynamic helical fashion during intravenous administration of 119 cc of Optiray 320. A dose lowering technique was utilized adhering to the principles of ALARA. CT DOSE: Technique: CT angiogram of the carotid and vertebral arteries was obtained using intravenous contrast and 3-D reconstruction. NASCET criteria was utilized. Findings: The right carotid revealed no evidence of aneurysm and no evidence of dissection. There is no evidence of hemodynamic significant stenosis. Note is made of a 50% stenosis of the right external carotid artery origin. The left carotid revealed no evidence of hemodynamic significant stenosis. There is no evidence of aneurysm. There is no evidence of dissection. There is moderate atheromatous calcification at the level of the left carotid bulb. There is no evidence of hemodynamically significant vertebral stenosis. There is no evidence of vertebral dissection. IMPRESSION: No evidence of hemodynamically significant carotid or vertebral artery stenosis. No evidence of dissection. ACT 112: Negative or not required by law. Electronically signed by: Leno Rosales M.D. 02/25/2019 6:01 PM ECG Data Attestation: I personally reviewed and interpreted this ECG as follows: Indication: + weakness Rate (beats per minute): 68 Rhythm: + sinus rhythm ECG Intervals/blocks: + Normal QRS (122) and + Normal QT-c (478) ECG [place]: + Normal ECG ST segments: no ST depression and no ST elevation ECG Findings: + PACs Comparison ECG Date: from (12/18/10) Change: no significant change (with increased QRS) Blood Pressure Blood Pressure Findings: Elevated blood pressure Blood Pressure Disposition: further management by hospitalist MARGARET French The patient is a pleasant 78-year-old woman with a past medical history of hypertension who presents to the emergency department for evaluation for trans ient episode of inability to speak and global paralysis lasting 5 seconds that occurred at 2 AM on Thursday evening per HPI. On arrival patient is no acute distress, afebrile, hypertensive but otherwise stable vital signs. The patient appears clinically dry. patient is neurologically intact. EKG without overt acute ischemia. Chest x-ray negative acute process. WBC, H/H, platelets wnl. Chemistry without acidosis. LFTs and electrolytes unremarkable. Troponin negative. UA negative. CT a of the head and neck was performed negative for ICH, ischemia or severe narrowing or occlusion of large vessels. Given the patient's episode of severe symptoms albeit short in duration reasonable admit the patient for further stroke evaluation. Patient was agreeable with this. Case was discussed with Doris Munguia, [facility], who evaluate the patient for admission. Impression & Plan Stroke-like symptoms, Hypertension, History of hyperlipidemia, Dizziness Discharge Plan Visit Data *Final* Discharge Date/Time: 02/25/19 20:04 Chief Complaint: Hypertension Stated Complaint: HIGH BLOOD PRESSURE ED Provider: Semaj Baez Discharge Problem: Stroke-like symptoms, Hypertension, History of hyperlipidemia, Dizziness Patient Disposition: Admitted As Inpatient Discharge Instructions Interventions: ED Discharge Assessment Last Done: 02/25/19 20:04 Discharge Problem: Hypertension Qualifiers: Hypertension type: unspecified Qualified Code(s): I10 - Essential (primary) hypertension The scribe's documentation has been prepared under my direction and personally reviewed by me in its entirety. I confirm that the note above accurately reflects all work, treatment, procedures, and medical decision making performed by me.
[2019-02-26] MEDS: PANTOprazole 40 MG TAB PO SCH (07:51)
[2019-02-26] MEDS: BuPROPion SR 150 MG TABCR PO SCH (07:51)
[2019-02-26] MEDS: ASPIRIN 81 MG ECTAB PO SCH (07:51)
[2019-02-26] MEDS: TELMISARTAN 40 MG TAB PO SCH (07:51)
[2019-02-26 08:04] LABS: Basophils # (auto) 0.02 K/uL (0-0.2); Basophils % (auto) 0.3 %; Eosinophils # (auto) 0.15 K/uL (0-0.5); Eosinophils % (auto) 2.5 %; Hematocrit (blood only) 36.6 % (37-47); Hemoglobin 12.4 g/dL (12.0-16.0); Immature Granulocytes # (auto) 0.01 K/uL (0.00-0.02); Immature Granulocytes % (auto) 0.2 %; Lymphocytes # (auto) 2.12 K/uL (1.2-3.4); Lymphocytes % (auto) 35.2 %; Mean Corpuscular Hemoglobin 30.6 pg (25-34); Mean Corpuscular Hgb Conc 33.9 g/dL (32-36); Mean Corpuscular Volume 90.4 fL (80-100); Mean Platelet Volume 10.4 fL (7.4-10.4); Monocytes # (auto) 0.62 K/uL (0.11-0.59); Monocytes % (auto) 10.3 %; Neutrophils # (auto) 3.11 K/uL (1.4-6.5); Neutrophils % (auto) 51.5 %; Platelet Count 292 K/uL (130-400); RDW Coefficient of Variation 13.2 % (11.5-14.5); RDW Standard Deviation 43.4 fL (36.4-46.3); Red Blood Count 4.05 M/uL (4.2-5.4); White Blood Count 6.03 K/uL (4.8-10.8)
[2019-02-26 08:29] LABS: Estimated Average Glucose 105 mg/dl; Hemoglobin A1C 5.3 % (4.5-5.6)
[2019-02-26 08:36] LABS: BUN Creatinine Ratio 22.8 (10-20); Calcium 9.1 mg/dl (8.5-10.1); Creatinine Clr Calc Pharmacy 52.5 ml/min; Est GFR (African American) 81.2; Est GFR (Non-African American) 70.1; Potassium 3.9 mmol/L (3.5-5.1)
--- NOTE | 2019-02-26 11:57 | Consultation Report ---
DATE OF CONSULTATION: 02/26/2019 REASON FOR CONSULTATION: Dizziness, blurred vision. HISTORY OF PRESENT ILLNESS: The patient is a 78-year-old right-handed female who was in her usual state until early morning, while watching TV, she noted a 5-second episode of blurred vision, generalized weakness and muteness. This was not accompanied by other symptoms such as double vision or vertigo. She did not have a headache at that time. The episode resolved spontaneously. Over the subsequent 24 hours, she noted vertigo with changes in head position, lasting several seconds, accompanied by nausea. There was a persistent sense of generalized weakness and nausea even without the vertigo. There has been a mild nonthrobbing headache as well. She has otherwise been well. Several years ago, was thought to have an episode of transient global amnesia, for which she was placed on aspirin. She has been not taking her aspirin regularly. She does have a history of vertigo in the past. She has not had any new otologic symptoms. She has chronic bilateral hearing loss, occasional ear pain, but there has been no fluctuating hearing loss with this episode of vertigo. She has not had any recent head or neck injury, medical or dental procedures. She has not had any fevers, chills, sweats or weight loss. She cares for her 92-year-old who has an advanced dementia. Of note, the patient was markedly hypertensive on admission with a maximum blood pressure of 234/128. LABORATORY DATA: CBC is unremarkable. Chloride 110, calcium 8.9, lipase 62. TSH 2.58. LDL 85. Urinalysis negative. CTA of head and neck, no major branch occlusion, no hemodynamically significant carotid or vertebral artery stenosis or basilar stenosis. MRI of the brain, no evidence of intracranial mass, acute or subacute infarction. Prominent CSF at the level of convexities secondary to volume loss. Electrocardiogram, sinus rhythm with PACs, right bundle branch block. PAST MEDICAL HISTORY: Hypertension, hyperlipidemia, hypothyroidism, depression, transient global amnesia. No history of rheumatic fever, murmur, DVT, or cancer. PAST SURGICAL HISTORY: Hysterectomy. FAMILY HISTORY: Breast cancer and heart disease. The patient indicates that her mother told her that she had multiple mini strokes but lived into her late 90s. SOCIAL HISTORY: Nonsmoker, nondrinker. ALLERGIES: MOLD, MORPHINE, SHELLFISH, DUST. MEDICATIONS: Bupropion, buspirone, levothyroxine, Lutein, Multivites, omeprazole, pravastatin, telmisartan, vitamin B complex. PHYSICAL EXAMINATION: VITAL SIGNS: 117/67, 71, 16, 36.7, 98%. GENERAL: The patient is awake, alert, oriented x3. Normal speech and language. Affect appropriate. NECK: There are no carotid or vertebral bruits. HEART: Regular rate and rhythm. NEUROLOGIC: Pupils are postsurgical. Optic nerves are grossly normal. Normal magana, motility, facial sensation and symmetry. Gross hearing is intact. Hernandez are negative, nonlateralizing. Provocative head maneuvers are negative. Face is symmetric. Tongue is midline. Motor 5/5, no drift. Normal rapid alternating movements. Symmetric reflexes. Downgoing toes. [id number] and [id number] are normal. Sensation is intact to vibration sense, light touch and temperature bilaterally. IMPRESSION: This patient had a 5-second episode of weakness and inability to speak. Typically, this would be extremely short for transient ischemia, which is typically 2 or more minutes. Superimposed on that is subsequent vertigo. I wonder whether or not she may have been briefly vertiginous, felt mildly vagal as the cause of her symptoms. That having been said, she had severely accelerated hypertension, which could have been accountable for the 5-second episode. The additional episodes of vertigo with changes in head position and nausea sound more typical for benign paroxysmal positional vertigo. PLAN: I would workup the initial episode of 5 seconds with cardiovascular testing, cardiac monitoring and an outpatient monitor. She has recently had a stress echo and I think that is reasonable not to repeat. I would resume aspirin, recommend a goal LDL of 70 or less. Recommend checking orthostatic blood pressures. Patient sounds as if she has BPPV. Vertigo has resolved and I am unable to elicit it. If vertigo recurs and continues to be typical for a positional type vertigo, would recommend labyrinthine exercises and Kala maneuver with physical therapy. We will follow with you. CARLINE
--- NOTE | 2019-02-26 13:36 | Hospitalist Progress Note ---
Date of Service February 26, 2019 Assessment & Plan (1) Stroke-like symptoms: All of the strokelike symptoms have resolved CT of the head, head and neck CTA and MRI of the brain are unremarkable No arrhythmias on monitor but will need Holter as an outpatient Present on Admission?: Yes (2) Dizziness: Pt is 78 y/o F with PMH HTN, dyslipidemia, hypothyroidism, depression presented to ER with c/o episode of blurry vision on 02/24/19 at 2:00AM with weakness, and could not speak lasting 5 seconds. Since with intermittent dizziness described as room spinning and intermittent generalized MARLEY since yesterday. DDX: TIA, stroke, vertigo In ER afebrile, P: 74, BP: 204/92, 96% on RA. No leukocytosis, H/H: 13/39, UA unremarkable, negative troponin CT HEAD:No acute intracranial findings CTA HEAD: No lesion suspicious for aneurysm. There are no major intracranial branch occlusions. The dural venous sinuses appear patent. CTA NECK: The right carotid revealed no evidence of aneurysm and no evidence of dissection. There is no evidence of hemodynamic significant stenosis. Note is made of a 50% stenosis of the right external carotid artery origin. The left carotid revealed no evidence of hemodynamic significant stenosis. There is no evidence of aneurysm. There is no evidence of dissection. There is moderate atheromatous calcification at the level of the left carotid bulb. There is no evidence of hemodynamically significant vertebral stenosis. There is no evidence of vertebral dissection. Feels fine and denied any neurological symptoms No recurrence of the symptoms and no new symptoms Still has dizziness with neck movement at times Will get orthostatic blood pressure and pulse We will ask for Kala maneuver Likely discharge tomorrow (3) HTN (hypertension): -Will allow permissive HTN at this time. BP may also be elevated secondary to anxiety -Continue telmisartan -Clonidine prn SBP >180 -Admitted with very high systolic blood pressure -Remains reasonably stable as of today Possible peripheral vascular disease She has been complaining of calf pain especially in the right side with activities Tibialis posterior and dorsalis pedis on both sides were palpable We will advise DIPIKA as an outpatient through PCP (4) Dyslipidemia: -Continue statin (5) Hypothyroidism: TSH: 2.5 -Continue levothyroxine (6) Depression: Hx Depression, anxiety. Follows with psych - Dr Thao -Continue bupropion -Pt reports doesn't take buspirone DVT Prophylaxis -Lovenox SQ Full Code as per discussion with pt Follows with Dr Raghu Armenta for routine care Subjective 02/26/2019 The patient was seen and examined in the medical floor She denies any symptoms whatsoever All of her presenting symptoms of strokelike nature have resolved She will have orthostasis done in the hospital and Kala maneuver whenever available Review of Systems Review of Systems: All systems reviewed and are unremarkable except as noted below Constitutional: no weakness Neurologic: Alert awake and oriented x3. Moves all extremities equally and no focal sensory and motor deficit appreciated, Physical Exam Physical Exam: Lying in bed comfortably Constitutional: well developed and well nourished; no acute distress and not ill appearing Eyes: PERRL, conjunctivae normal, anicteric sclerae ENMT: external ear and nose normal, oropharynx normal Neck: trachea midline, no thyromegaly Respiratory: normal respiratory effort; no respiratory distress Auscultation: lungs clear to auscultation bilaterally Cardiovascular: Rate/Rhythm: regular rate and regular rhythm Heart Sounds: no murmur Gastrointestinal (Abdomen): Inspection/Auscultation: abdomen normal to inspection and normal bowel sounds Percussion/Palpation: abdomen soft; abdomen nontender Musculoskeletal: Extremities: strength 5/5 throughout Neurologic: moves all extremities; no focal motor deficits Lymphatic: no cervical or axillary lymphadenopathy Results & Data Vital Signs (Past 12 Hours) Vital Signs Temp Pulse Pulse Resp BP Pulse Ox 02/26/19 11:17 36.7 C 72 16 148/77 H 97 02/26/19 09:00 71 02/26/19 07:25 36.7 C 70 16 117/67 98 02/26/19 03:55 37.1 C 80 18 128/71 97 Laboratory Results Short CBC 02/25/19 02/26/19 Range/Units 16:52 07:33 WBC 5.46 6.03 (4.8-10.8) K/uL Hgb 13.4 12.4 (12.0-16.0) g/dL Hct 39.5 36.6 L (37-47) % Plt Count 295 292 (130-400) K/uL BMP 02/25/19 02/26/19 16:52 07:33 Sodium 139 141 Potassium 3.6 3.9 Chloride 110 H 111 H Carbon Dioxide 26 25 BUN 16 19 H Creatinine 0.83 0.81 Glucose 78 88 Calcium 8.9 9.1 Cardiac Enzymes 02/25/19 Range/Units 16:52 Troponin I < 0.015 (0-0.045) ng/ml Liver Function 02/25/19 Range/Units 16:52 Total Bilirubin 0.5 (0.2-1) mg/dl AST 25 (15-37) U/L ALT 30 (12-78) U/L Alkaline Phosphatase 117 (45-117) U/L Albumin 3.4 (3.4-5.0) gm/dl Urine 02/25/19 Range/Units 17:00 Urine Color Dark Yellow Urine Appearance Clear (Clear) Urine pH 6.0 (4.5-7.5) Ur Specific [place] 1.019 (1.000-1.030) Urine Protein Negative (Negative) Urine Glucose (UA) Negative (Negative) Medications Administered Current Inpatient Medications Acetaminophen (Tylenol) 650 mg PO Q4H PRN PRN Reason: Pain or Fever Stop: 03/27/19 20:36 Aspirin (Ecotrin Ectab) 81 mg PO DAILY [facility] Stop: 03/28/19 08:59 Last Admin: 02/26/19 07:51 Dose: 81 mg Documented by: Bupropion HCl (Wellbutrin-Sr) 150 mg PO QAM [facility] Stop: 03/28/19 08:59 Last Admin: 02/26/19 07:51 Dose: 150 mg Documented by: Clonidine HCl (Catapres) 0.1 mg PO Q4H PRN PRN Reason: Hypertension Stop: 03/27/19 20:36 Enoxaparin Sodium (Lovenox) 40 mg SQ Q24H [facility] Stop: 03/27/19 20:59 Last Admin: 02/25/19 21:47 Dose: 40 mg Documented by: Levothyroxine Sodium (Synthroid) 88 mcg PO HS [facility] Stop: 03/27/19 20:59 Last Admin: 02/25/19 21:47 Dose: 88 mcg Documented by: Meclizine HCl (Antivert) 12.5 mg PO Q8H PRN PRN Reason: Dizziness or Vertigo Stop: 03/27/19 20:36 Miscellaneous Information (Pharmacist Discharge Med Rec Consult) 1 ea N/A UD PRN PRN Reason: Consult Stop: 03/27/19 20:36 Pantoprazole Sodium (Protonix) 40 mg PO [facility] Stop: 03/28/19 08:59 Last Admin: 02/26/19 07:51 Dose: 40 mg Documented by: Pravastatin Sodium (Pravachol) 40 mg PO [facility] Stop: 03/27/19 20:59 Last Admin: 02/25/19 21:47 Dose: 40 mg Documented by: Telmisartan (Micardis) 40 mg PO [facility] Stop: 03/28/19 08:59 Last Admin: 02/26/19 07:51 Dose: 40 mg Documented by:
[2019-02-26] MEDS: ENOXAPARIN INJ 40 MG/0.4 ML SYR SQ SCH (20:48)
[2019-02-26] MEDS: PRAVASTATIN SOD 40 MG TAB PO SCH (20:48)
[2019-02-26] MEDS: LEVOTHYROXINE SODIUM 88 MCG TABLET PO SCH (20:49)
--- NOTE | 2019-02-26 21:24 | Electrocardiogram Report ---
Test Reason : Blood Pressure : / mmHG Vent. Rate : 068 BPM Atrial Rate : 068 BPM P-R Int : 172 ms QRS Dur : 122 ms QT Int : 450 ms P-R-T Axes : 037 -04 -02 degrees QTc Int : 478 ms Sinus rhythm with Premature atrial complexes Right bundle branch block Abnormal ECG When compared with ECG of 18-DEC-2010 17:39, Premature atrial complexes are now Present Right bundle branch block has replaced RSR' pattern in V1 Confirmed by Zechariah Alfaro ([id number] on 02/26/2019 9:24:35 PM Referred By: Ajit Cabrera Confirmed By:Zechariah Alfaro
[2019-02-26] MEDS ORDERED: OXYCODONE/ACETAMINOPHEN 5mg/325mg TAB PO STA (22:19)
[2019-02-26] MEDS ORDERED: PROMETHAZINE HCL 12.5 MG in SODIUM CHLORIDE 0.9% 50 ML IV PRN (22:19)
[2019-02-27 06:32] LABS: Basophils # (auto) 0.02 K/uL (0-0.2); Basophils % (auto) 0.3 %; Eosinophils # (auto) 0.17 K/uL (0-0.5); Hematocrit (blood only) 36.3 % (37-47); Hemoglobin 12.2 g/dL (12.0-16.0); Lymphocytes % (auto) 43.4 %; Mean Corpuscular Hemoglobin 30.5 pg (25-34); Mean Corpuscular Hgb Conc 33.6 g/dL (32-36); Mean Corpuscular Volume 90.8 fL (80-100); Mean Platelet Volume 10.6 fL (7.4-10.4); Monocytes # (auto) 0.58 K/uL (0.11-0.59); Monocytes % (auto) 10.1 %; Neutrophils # (auto) 2.49 K/uL (1.4-6.5); Neutrophils % (auto) 43.2 %; Platelet Count 259 K/uL (130-400); RDW Coefficient of Variation 13.2 % (11.5-14.5); RDW Standard Deviation 44.3 fL (36.4-46.3); White Blood Count 5.76 K/uL (4.8-10.8)
[2019-02-27 07:03] LABS: BUN Creatinine Ratio 27.7 (10-20); Calcium 9.2 mg/dl (8.5-10.1); Creatinine Clr Calc Pharmacy 50.1 ml/min; Est GFR (African American) 76.6; Est GFR (Non-African American) 66.1; Magnesium 2.3 mg/dl (1.8-2.4); Potassium 4.1 mmol/L (3.5-5.1)
[2019-02-27] MEDS: ASPIRIN 81 MG ECTAB PO SCH (07:42)
[2019-02-27] MEDS: PANTOprazole 40 MG TAB PO SCH (07:42)
[2019-02-27] MEDS: BuPROPion SR 150 MG TABCR PO SCH (07:42)
[2019-02-27] MEDS: TELMISARTAN 40 MG TAB PO SCH (07:42)
[2019-02-27] MEDS ORDERED: SODIUM CHLORIDE 0.9% 1000ML 1,000 ML IV SCH (12:45)
--- NOTE | 2019-02-27 13:35 | Progress Note ---
DATE: 02/27/2019 HISTORY OF PRESENT ILLNESS: I have seen the patient in followup over a 5-second episode of generalized weakness and blurred vision. She then subsequently had some positional vertigo. MRI brain unremarkable. CTA head and neck unremarkable. She has recently had a stress echo, so an echo was not performed. She was started on aspirin. 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 Last evening, she had a gradual onset of a moderate headache which did not respond to what I believe was Tylenol, but then responded to Percocet. She has noted some minor dizziness when she went up to go the bathroom. She had some vertigo without other symptoms such as diplopia, dysarthria, dysphagia. PHYSICAL EXAMINATION: GENERAL: She is awake and alert. Speech and language are normal. VITAL SIGNS: 123/67, 16. NEUROLOGIC: Normal extraocular motility without nystagmus. Normal facial symmetry. Speech is unremarkable. There is symmetric strength, no drift. Symmetric reflexes. Downgoing toes. [id number] and [id number] are normal. Provocative head maneuvers with head hanging to the left may cause some nausea, but no abnormal eye movements. IMPRESSION AND PLAN: Brief, 5 seconds of generalized weakness and disturbed vision, very brief for a transient ischemic attack, workup for vascular risk factors has been on the whole noncontributory.Rec contd cardiac eval She is placed on aspirin. Her LDL is 85 suggestive that statin therapy should be intensified. I ordered orthostatics yesterday. Unclear if it has been done. We will reorder today. We will have Physical Therapy see her about Kala maneuver. As an outpatient, she should have a Zio patch. We will follow with you. CARLINE
--- NOTE | 2019-02-27 14:05 | Hospitalist Progress Note ---
Date of Service February 27, 2019 Assessment & Plan (1) Stroke-like symptoms: All of the strokelike symptoms have resolved CT of the head, head and neck CTA and MRI of the brain are unremarkable No arrhythmias on monitor but will need Holter as an outpatient Symptoms have resolved (2) Dizziness: Pt is 78 y/o F with PMH HTN, dyslipidemia, hypothyroidism, depression presented to ER with c/o episode of blurry vision on 02/24/19 at 2:00AM with weakness, and could not speak lasting 5 seconds. Since with intermittent dizziness described as room spinning and intermittent generalized MARLEY since yesterday. DDX: TIA, stroke, vertigo In ER afebrile, P: 74, BP: 204/92, 96% on RA. No leukocytosis, H/H: 13/39, UA unremarkable, negative troponin CT HEAD:No acute intracranial findings CTA HEAD: No lesion suspicious for aneurysm. There are no major intracranial branch occlusions. The dural venous sinuses appear patent. CTA NECK: The right carotid revealed no evidence of aneurysm and no evidence of dissection. There is no evidence of hemodynamic significant stenosis. Note is made of a 50% stenosis of the right external carotid artery origin. The left carotid revealed no evidence of hemodynamic significant stenosis. There is no evidence of aneurysm. There is no evidence of dissection. There is moderate atheromatous calcification at the level of the left carotid bulb. There is no evidence of hemodynamically significant vertebral stenosis. There is no evidence of vertebral dissection. Feels fine and denied any neurological symptoms No recurrence of the symptoms and no new symptoms Still has dizziness with neck movement at times Will get orthostatic blood pressure and pulse We will ask for Kala maneuver: Did not have labyrinthitis and Kala maneuver did not help Noted to have postural hypotension with systolic blood pressure dropped more than 20 points on standing and the patient got symptomatic We will give 1 L of normal saline and advised to have more ambulation (3) HTN (hypertension): -Will allow permissive HTN at this time. BP may also be elevated secondary to anxiety -Continue telmisartan -Clonidine prn SBP >180 -Admitted with very high systolic blood pressure -Remains reasonably stable as of today Possible peripheral vascular disease She has been complaining of calf pain especially in the right side with activities Tibialis posterior and dorsalis pedis on both sides were palpable We will advise DIPIKA as an outpatient through PCP Will likely to stay tonight and probable discharge tomorrow (4) Dyslipidemia: -Continue statin (5) Hypothyroidism: TSH: 2.5 -Continue levothyroxine (6) Depression: Hx Depression, anxiety. Follows with psych - Dr Thao -Continue bupropion -Pt reports doesn't take buspirone DVT Prophylaxis -Lovenox SQ Full Code as per discussion with pt Follows with Dr Raghu Armenta for routine care Subjective 02/26/2019 The patient was seen and examined in the medical floor She denies any symptoms whatsoever All of her presenting symptoms of strokelike nature have resolved She will have orthostasis done in the hospital and Kala maneuver whenever available 02/27/2019 The patient was seen and examined in medical floor She remains lethargic and still complains to have dizziness when ambulant Noted to have postural hypotension with systolic blood pressure dropping more than 20 points on standing without any elevation of the pulse but did have some symptoms Review of Systems Review of Systems: All systems reviewed and are unremarkable except as noted below Neurologic: Alert awake and oriented x3. Moves all extremities equally and no focal sensory and motor deficit appreciated, Physical Exam Physical Exam: Lying in bed comfortably Constitutional: well developed and well nourished; no acute distress and not ill appearing Eyes: PERRL, conjunctivae normal, anicteric sclerae ENMT: external ear and nose normal, oropharynx normal Neck: trachea midline, no thyromegaly Respiratory: normal respiratory effort; no respiratory distress Auscul tation: lungs clear to auscultation bilaterally Cardiovascular: Rate/Rhythm: regular rate and regular rhythm Heart Sounds: no murmur Gastrointestinal (Abdomen): Inspection/Auscultation: abdomen normal to inspection and normal bowel sounds Percussion/Palpation: abdomen soft; abdomen nontender Musculoskeletal: Extremities: strength 5/5 throughout Neurologic: moves all extremities; no focal motor deficits Lymphatic: no cervical or axillary lymphadenopathy Results & Data Vital Signs (Past 12 Hours) Vital Signs Temp Pulse Pulse Resp BP BP Pulse Ox 02/27/19 11:51 36.7 C 67 16 123/74 97 02/27/19 09:00 62 02/27/19 07:15 36.8 C 65 16 123/67 97 02/27/19 04:19 36.9 C 67 18 119/65 97 02/27/19 04:00 78 Laboratory Results Short CBC 02/27/19 Range/Units 06:04 WBC 5.76 (4.8-10.8) K/uL Hgb 12.2 (12.0-16.0) g/dL Hct 36.3 L (37-47) % Plt Count 259 (130-400) K/uL BMP 02/27/19 06:04 Sodium 141 Potassium 4.1 Chloride 110 H Carbon Dioxide 26 BUN 24 H Creatinine 0.85 Glucose 100 H Calcium 9.2 Medications Administered Current Inpatient Medications Acetaminophen (Tylenol) 650 mg PO Q4H PRN PRN Reason: Pain or Fever Stop: 03/27/19 20:36 Last Admin: 02/26/19 13:52 Dose: 650 mg Documented by: Aspirin (Ecotrin Ectab) 81 mg PO DAILY [facility] Stop: 03/28/19 08:59 Last Admin: 02/27/19 07:42 Dose: 81 mg Documented by: Bupropion HCl (Wellbutrin-Sr) 150 mg PO QAM [facility] Stop: 03/28/19 08:59 Last Admin: 02/27/19 07:42 Dose: 150 mg Documented by: Clonidine HCl (Catapres) 0.1 mg PO Q4H PRN PRN Reason: Hypertension Stop: 03/27/19 20:36 Last Admin: 02/26/19 16:55 Dose: 0.1 mg Documented by: Enoxaparin Sodium (Lovenox) 40 mg SQ Q24H [facility] Stop: 03/27/19 20:59 Last Admin: 02/26/19 20:48 Dose: 40 mg Documented by: Promethazine HCl 12.5 mg/ (Sodium Chloride) 50.5 mls @ 202 mls/hr IV Q6H PRN PRN Reason: Nausea And Vomiting Stop: 03/28/19 22:18 Last Infusion: 02/27/19 00:50 Dose: Infused Documented by: Sodium Chloride (Nss 1000ml) 1,000 mls @ 125 mls/hr IV .Q8H [facility] Stop: 02/27/19 20:44 Last Admin: 02/27/19 12:51 Dose: 125 mls/hr Documented by: Levothyroxine Sodium (Synthroid) 88 mcg PO HS [facility] Stop: 03/27/19 20:59 Last Admin: 02/26/19 20:49 Dose: 88 mcg Documented by: Meclizine HCl (Antivert) 12.5 mg PO Q8H PRN PRN Reason: Dizziness or Vertigo Stop: 03/27/19 20:36 Miscellaneous Information (Pharmacist Discharge Med Rec Consult) 1 ea N/A UD PRN PRN Reason: Consult Stop: 03/27/19 20:36 Pantoprazole Sodium (Protonix) 40 mg PO [facility] Stop: 03/28/19 08:59 Last Admin: 02/27/19 07:42 Dose: 40 mg Documented by: Pravastatin Sodium (Pravachol) 40 mg PO [facility] Stop: 03/27/19 20:59 Last Admin: 02/26/19 20:48 Dose: 40 mg Documented by: Telmisartan (Micardis) 40 mg PO [facility] Stop: 03/28/19 08:59 Last Admin: 02/27/19 07:42 Dose: 40 mg Documented by:
[2019-02-27] MEDS: PRAVASTATIN SOD 40 MG TAB PO SCH (20:19)
[2019-02-27] MEDS: ENOXAPARIN INJ 40 MG/0.4 ML SYR SQ SCH (20:19)
[2019-02-27] MEDS: LEVOTHYROXINE SODIUM 88 MCG TABLET PO SCH (20:19)
[2019-02-28 06:50] LABS: Basophils # (auto) 0.02 K/uL (0-0.2); Basophils % (auto) 0.4 %; Eosinophils # (auto) 0.18 K/uL (0-0.5); Eosinophils % (auto) 3.3 %; Hematocrit (blood only) 36.2 % (37-47); Hemoglobin 12.1 g/dL (12.0-16.0); Immature Granulocytes # (auto) 0.01 K/uL (0.00-0.02); Immature Granulocytes % (auto) 0.2 %; Lymphocytes % (auto) 40.3 %; Mean Corpuscular Hemoglobin 30.5 pg (25-34); Mean Corpuscular Hgb Conc 33.4 g/dL (32-36); Mean Corpuscular Volume 91.2 fL (80-100); Mean Platelet Volume 10.1 fL (7.4-10.4); Monocytes # (auto) 0.53 K/uL (0.11-0.59); Monocytes % (auto) 9.7 %; Neutrophils # (auto) 2.52 K/uL (1.4-6.5); Neutrophils % (auto) 46.1 %; Platelet Count 248 K/uL (130-400); RDW Coefficient of Variation 13.1 % (11.5-14.5); RDW Standard Deviation 43.7 fL (36.4-46.3); Red Blood Count 3.97 M/uL (4.2-5.4); White Blood Count 5.46 K/uL (4.8-10.8)
[2019-02-28 07:25] LABS: BUN Creatinine Ratio 32.4 (10-20); Calcium 8.9 mg/dl (8.5-10.1); Est GFR (African American) 75.5; Est GFR (Non-African American) 65.2; Potassium 4.2 mmol/L (3.5-5.1)
[2019-02-28] MEDS: PANTOprazole 40 MG TAB PO SCH (07:34)
[2019-02-28] MEDS: ASPIRIN 81 MG ECTAB PO SCH (07:34)
[2019-02-28] MEDS: BuPROPion SR 150 MG TABCR PO SCH (07:34)
[2019-02-28] MEDS: TELMISARTAN 40 MG TAB PO SCH (07:34)
--- NOTE | 2019-02-28 10:34 | Hospitalist Progress Note ---
Date of Service February 28, 2019 Assessment & Plan (1) Stroke-like symptoms: All of the strokelike symptoms have resolved CT of the head, head and neck CTA and MRI of the brain are unremarkable No arrhythmias on monitor but will need Holter as an outpatient Symptoms have resolved (2) Dizziness: Pt is 78 y/o F with PMH HTN, dyslipidemia, hypothyroidism, depression presented to ER with c/o episode of blurry vision on 02/24/19 at 2:00AM with weakness, and could not speak lasting 5 seconds. Since with intermittent dizziness described as room spinning and intermittent generalized MARLEY since yesterday. DDX: TIA, stroke, vertigo In ER afebrile, P: 74, BP: 204/92, 96% on RA. No leukocytosis, H/H: 13/39, UA unremarkable, negative troponin CT HEAD:No acute intracranial findings CTA HEAD: No lesion suspicious for aneurysm. There are no major intracranial branch occlusions. The dural venous sinuses appear patent. CTA NECK: The right carotid revealed no evidence of aneurysm and no evidence of dissection. There is no evidence of hemodynamic significant stenosis. Note is made of a 50% stenosis of the right external carotid artery origin. The left carotid revealed no evidence of hemodynamic significant stenosis. There is no evidence of aneurysm. There is no evidence of dissection. There is moderate atheromatous calcification at the level of the left carotid bulb. There is no evidence of hemodynamically significant vertebral stenosis. There is no evidence of vertebral dissection. Dizziness has resolved and denies any more neural neurological symptoms Has been ambulating without any problem Feels fine and denied any neurological symptoms No recurrence of the symptoms and no new symptoms Still has dizziness with neck movement at times Will get orthostatic blood pressure and pulse We will ask for Kala maneuver: Did not have labyrinthitis and Kala maneuver did not help Noted to have postural hypotension with systolic blood pressure dropped more than 20 points on standing and the patient got symptomatic We will give 1 L of normal saline and advised to have more ambulation No more dizziness (3) HTN (hypertension): -Will allow permissive HTN at this time. BP may also be elevated secon tyrese to anxiety -Continue telmisartan -Clonidine prn SBP >180 -Admitted with very high systolic blood pressure -Remains reasonably stable as of today Possible peripheral vascular disease She has been complaining of calf pain especially in the right side with activities Tibialis posterior and dorsalis pedis on both sides were palpable We will advise DIPIKA as an outpatient through PCP Discharge early this morning (4) Dyslipidemia: -Continue statin (5) Hypothyroidism: TSH: 2.5 -Continue levothyroxine (6) Depression: Hx Depression, anxiety. Follows with psych - Dr Thao -Continue bupropion -Pt reports doesn't take buspirone DVT Prophylaxis -Lovenox SQ Full Code as per discussion with pt Follows with Dr Raghu Armenta for routine care Will have outpatient Zeo patch placement as per neurologist Subjective 02/26/2019 The patient was seen and examined in the medical floor She denies any symptoms whatsoever All of her presenting symptoms of strokelike nature have resolved She will have orthostasis done in the hospital and Kala maneuver whenever available 02/27/2019 The patient was seen and examined in medical floor She remains lethargic and still complains to have dizziness when ambulant Noted to have postural hypotension with systolic blood pressure dropping more than 20 points on standing without any elevation of the pulse but did have some symptoms 02/28/19 The patient was seen and examined in medical floor Denies to have any more dizziness She does not have any more neurological symptoms She has been ambulant without any problem Wants to go home this morning Review of Systems Review of Systems: All systems reviewed and are unremarkable except as noted below Neurologic: Alert awake and oriented x3. Moves all extremities equally and no focal sensory and motor deficit appreciated, Physical Exam Physical Exam: Lying in bed without any apparent distress Constitutional: well developed and well nourished; no acute distress and not ill appearing Eyes: PERRL, conjunctivae normal, anicteric sclerae ENMT: external ear and nose normal, oropharynx normal Neck: trachea midline, no thyromegaly Respiratory: normal respiratory effort; no respiratory distress Auscultation: lungs clear to auscultation bilaterally Cardiovascular: Rate/Rhythm: regular rate and regular rhythm Heart Sounds: no murmur Gastrointestinal (Abdomen): Inspection/Auscultation: abdomen normal to inspection and normal bowel sounds Percussion/Palpation: abdomen soft; abdomen nontender Musculoskeletal: Extremities: strength 5/5 throughout Denies any acute ar thritis Neurologic: moves all extremities; no focal motor deficits Alert, awake and oriented x3 Lymphatic: no cervical or axillary lymphadenopathy Results & Data Vital Signs (Past 12 Hours) Vital Signs Temp Pulse Pulse Resp BP Pulse Ox 02/28/19 09:00 72 02/28/19 07:11 36.3 C L 69 16 147/69 H 95 02/28/19 03:10 36.9 C 74 15 151/69 H 98 02/28/19 01:33 82 02/27/19 22:55 37.0 C 77 15 168/81 H 97 Laboratory Results Short CBC 02/28/19 Range/Units 06:41 WBC 5.46 (4.8-10.8) K/uL Hgb 12.1 (12.0-16.0) g/dL Hct 36.2 L (37-47) % Plt Count 248 (130-400) K/uL BMP 02/28/19 06:41 Sodium 140 Potassium 4.2 Chloride 111 H Carbon Dioxide 23 BUN 28 H Creatinine 0.86 Glucose 92 Calcium 8.9 Medications Administered Current Inpatient Medications Acetaminophen (Tylenol) 650 mg PO Q4H PRN PRN Reason: Pain or Fever Stop: 03/27/19 20:36 Last Admin: 02/26/19 13:52 Dose: 650 mg Documented by: Aspirin (Ecotrin Ectab) 81 mg PO DAILY [facility] Stop: 03/28/19 08:59 Last Admin: 02/28/19 07:34 Dose: 81 mg Documented by: Bupropion HCl (Wellbutrin-Sr) 150 mg PO QAM [facility] Stop: 03/28/19 08:59 Last Admin: 02/28/19 07:34 Dose: 150 mg Documented by: Clonidine HCl (Catapres) 0.1 mg PO Q4H PRN PRN Reason: Hypertension Stop: 03/27/19 20:36 Last Admin: 02/26/19 16:55 Dose: 0.1 mg Documented by: Enoxaparin Sodium (Lovenox) 40 mg SQ Q24H [facility] Stop: 03/27/19 20:59 Last Admin: 02/27/19 20:19 Dose: 40 mg Documented by: Promethazine HCl 12.5 mg/ (Sodium Chloride) 50.5 mls @ 202 mls/hr IV Q6H PRN PRN Reason: Nausea And Vomiting Stop: 03/28/19 22:18 Last Infusion: 02/27/19 00:50 Dose: Infused Documented by: Levothyroxine Sodium (Synthroid) 88 mcg PO HS [facility] Stop: 03/27/19 20:59 Last Admin: 02/27/19 20:19 Dose: 88 mcg Documented by: Meclizine HCl (Antivert) 12.5 mg PO Q8H PRN PRN Reason: Dizziness or Vertigo Stop: 03/27/19 20:36 Miscellaneous Information (Pharmacist Discharge Med Rec Consult) 1 ea N/A UD PRN PRN Reason: Consult Stop: 03/27/19 20:36 Pantoprazole Sodium (Protonix) 40 mg PO [facility] Stop: 03/28/19 08:59 Last Admin: 02/28/19 07:34 Dose: 40 mg Documented by: Pravastatin Sodium (Pravachol) 40 mg PO [facility] Stop: 03/27/19 20:59 Last Admin: 02/27/19 20:19 Dose: 40 mg Documented by: Telmisartan (Micardis) 40 mg PO [facility] Stop: 03/28/19 08:59 Last Admin: 02/28/19 07:34 Dose: 40 mg Documented by:
[2019-02-28] MEDS ORDERED: STROKE PATIENT DISCHARGE STA (10:41)
--- NOTE | 2019-03-01 08:54 | Discharge Summary ---
Date of Service March 01, 2019 Admission HPI Per Admitting Provider Pt is 78 y/o F with PMH HTN, dyslipidemia, hypothyroidism, depression presented to ER with c/o episode of visual disturbance. Pt states on 02/24/19 at 2:00AM was up watching TV when she had episode of blurry vision, pt thinks it was both eyes. At the same time describes generalized weakness ("Like a piece of ribbon candy") and felt like she couldn't move, and could not speak. Reports these symptoms lasted for 5 seconds and then resolved. After had nausea and epigastric discomfort which has persisted until this evening. Also reports intermittent dizziness which she describes as room spinning and is aggravated with sitting up or walking. C/O intermittent generalized MARLEY since yesterday. Currently denies MARLEY. Reports 3 episodes of loose stools yesterday. Yesterday ate 4 small cinnamon rolls, today only had hot chocolate this evening while in ER. Denies fever/chills, diaphoresis, N/V/C, syncope, neck pain, CP, SOB, orthopnea, palpitations, cough, sore throat, choking, otalgia, rhinorrhea, paresthesias, extremity edema, rashes, urinary symptoms. Admission Exam Per Admitting Provider Physical Exam: General: no distress, WDWN Head: normocephalic, atraumatic Eyes: PERRL, EOM's intact, +slight horizontal nystagmus noted, conjunctiva non- injected, anicteric ENT: somewhat hard of hearing (does not have hearing aids in place), normal inspection external ears, nose, mucous membranes moist Neck: supple, trachea midline, non-tender, ROM intact Lungs: clear, no respiratory distress, no wheezing/rhonchi/rales CV: RRR, no murmur, no JVD, no pretibial edema Abd: normal BS, soft, non-tender Ext: no cyanosis, no calf tenderness Neuro: A&O x 3, Facial sensation is intact and symmetric, The face is strong and symmetric, no dysarthria, Shoulder shrug intact, tongue is midline, normal movement, no fasciculations, Muscle tone normal. Strength 5/5 bilateral upper and lower extremities finger to nose intact, no pronator drift. normal affect Skin: warm, dry Principal Diagnosis Transient ischemic attack, dizziness likely secondary to postural hypotension, hypertension, hypothyroidism Discharge Exam Constitutional well developed and well nourished; no acute distress and not ill appearing Eyes PERRL, conjunctivae normal, anicteric sclerae ENMT external ear and nose normal, oropharynx normal Neck trachea midline, no thyromegaly Respiratory normal respiratory effort; no respiratory distress Auscultation: lungs clear to auscultation bilaterally Cardiovascular Rate/Rhythm: regular rate and regular rhythm Heart Sounds: no murmur Gastrointestinal (Abdomen) Inspection/Auscultation: abdomen normal to inspection and normal bowel sounds Percussion/Palpation: abdomen soft; abdomen nontender Musculoskeletal Extremities: strength 5/5 throughout Neurologic moves all extremities; no focal motor deficits Lymphatic no cervical or axillary lymphadenopathy Discharge Data Allergies Allergy/AdvReac Type Severity Reaction Status Date / Time mold Allergy Unknown SHORTNESS Unverified 02/25/19 17:31 OF BREATH morphine Allergy Unknown ? Verified 02/25/19 17:31 shellfish derived Allergy Unknown ANAPHYLAXIS Unverified 02/25/19 17:31 Dust Allergy Unknown SHORTNESS Uncoded 02/25/19 17:31 OF BREATH Consultations 02/25/19 17:55 ED Decision to Admit Stat 02/25/19 20:37 Consult Case Management - Discharge Planning Routine Consult Case Management - Discharge Planning Routine Consult Neurology Routine Ordered Studies 02/25/19 16:32 CT angio head w con Stat CT angio neck with con Stat CT head/brain wo con Stat 02/25/19 20:37 MR brain wo con Routine Hospital Course (1) Stroke-like symptoms: All of the strokelike symptoms have resolved CT of the head, head and neck CTA and MRI of the brain are unremarkable No arrhythmias on monitor but will need Holter as an outpatient Symptoms have resolved (2) Dizziness: Pt is 78 y/o F with PMH HTN, dyslipidemia, hypothyroidism, depression presented to ER with c/o episode of blurry vision on 02/24/19 at 2:00AM with weakness, and could not speak lasting 5 seconds. Since with intermittent dizziness described as room spinning and intermittent generalized MARLEY since yesterday. DDX: TIA, stroke, vertigo In ER afebrile, P: 74, BP: 204/92, 96% on RA. No leukocytosis, H/H: 13/39, UA unremarkable, negative troponin CT HEAD:No acute intracranial findings CTA HEAD: No lesion suspicious for aneurysm. There are no major intracranial branch occlusions. The dural venous sinuses appear patent. CTA NECK: The right carotid revealed no evidence of aneurysm and no evidence of dissection. There is no evidence of hemodynamic significant stenosis. Note is made of a 50% stenosis of the right external carotid artery origin. The left carotid revealed no evidence of hemodynamic significant stenosis. There is no evidence of aneurysm. There is no evidence of dissection. There is moderate atheromatous calcification at the level of the left carotid bulb. There is no evidence of hemodynamically significant vertebral stenosis. There is no evidence of vertebral dissection. Dizziness has resolved and denies any more neural neurological symptoms Has been ambulating without any problem Feels fine and denied any neurological symptoms No recurrence of the symptoms and no new symptoms Still has dizziness with neck movement at times Will get orthostatic blood pressure and pulse We will ask for Kala maneuver: Did not have labyrinthitis and Kala maneuver did not help Noted to have postural hypotension with systolic blood pressure dropped more than 20 points on standing and the patient got symptomatic We will give 1 L of normal saline and advised to have more ambulation No more dizziness (3) HTN (hypertension): -Will allow permissive HTN at this time. BP may also be elevated secondary to anxiety -Continue telmisartan -Clonidine prn SBP >180 -Admitted with very high systolic blood pressure -Remains reasonably stable as of today Possible peripheral vascular disease She has been complaining of calf pain especially in the right side with activities Tibialis posterior and dorsalis pedis on both sides were palpable We will advise DIPIKA as an outpatient through PCP Discharge early this morning (4) Dyslipidemia: -Continue statin (5) Hypothyroidism: TSH: 2.5 -Continue levothyroxine (6) Depression: Hx Depression, anxiety. Follows with psych - Dr Thao -Continue bupropion -Pt reports doesn't take buspirone DVT Prophylaxis -Lovenox SQ Full Code as per discussion with pt Follows with Dr Raghu Armenta for routine care Will have outpatient Zeo patch placement as per neurologist Total Time Total Time Spent Total Time Spent (In Minutes): 35 minutes Total Time Includes: Examination of the Patient, Discharge Planning, Medication Reconciliation and Communication With Other Providers Discharge Plan Discharge Items Patient Disposition: Home - Self-Care Reason For Visit: DIZZINESS Discharge Diagnosis: Transient ischemic attack, dizziness likely secondary to postural hypotension, hypertension, hypothyroidism Condition on Discharge: Good Activity: Resume your previous activity Non-emergency contact: Primary Care Provider Call non-emergency contact if: you have any medication questions and your symptoms worsen Follow-up/Referrals: Raghu Armenta DO [Primary Care Provider] - 03/04/19 11:10 am Diet: Heart Healthy Addtl Attending Provider Instructions: Please take precaution to prevent falls Try to drink more fluid The dose of pravastatin has been increased to 80 mg a day as per neurologist recommendation He will have a ZIO Patch placement as an outpatient Pending Studies at Discharge: No Stand-Alone Forms: My [facility] [employer], Smoking Cessation Medications and DC Order Prescriptions: New meclizine 12.5 mg Tablet 12.5 mg PO Q8H PRN (Reason: dizziness) 30 Days Qty: 30 RF: 0 aspirin [Ecotrin Low Strength] 81 mg Tablet,Delayed Release (Dr/Ec) 81 mg PO DAILY 30 Days Qty: 30 RF: 0 pravastatin 80 mg tablet 80 mg PO DAILY Qty: 30 RF: 0 Continued buspirone 5 mg tablet 5 mg PO HS PRN (Reason: Anxiety) RF: 0 bupropion HCl 150 mg tablet sustained-release 12 hr 150 mg PO QAM RF: 0 telmisartan 40 mg tablet 40 mg PO QAM RF: 0 omeprazole 20 mg capsule,delayed release(DR/EC) 20 mg PO QAM RF: 0 vitamin B complex Tablet 1 tab PO QAM RF: 0 multivitamin with minerals [One-A-Day Maximum Formula] Tablet 1 tab PO QAM RF: 0 lutein 6 mg Tablet 0 mg PO QAM RF: 0 Imbler-3 350 mg-235 mg- 90 mg-597 mg Capsule,Delayed Release(Dr/Ec) 1 cap PO QAM RF: 0 levothyroxine [Synthroid] 88 mcg tablet 88 mcg PO HS RF: 0 Discontinued pravastatin 40 mg tablet 40 mg PO HS RF: 0 Discharge Orders: Discharge Order (Routine); Ordered 02/28/19 Ordered By: Tuan Falk Admission Data Admit Date/Time: 02/25/19 19:05 Attending Provider: Tuan Falk Admit Provider: Ajit Emanuel Primary Care Provider: Raghu Armenta Other Providers: Sae Bah ; Ilene Mercer ; Ajit Emanuel Other Interventions: Discharge Summary Assessment (RN) Last Done: 02/28/19 10:48 DC Date/Time DO NOT enter until pt leaves facility: 02/28/19 11:58
== END 2019-02-28 11:58 | disposition home or self-care (01) ==
LOC: ED 15:57 → 2W 19:05 → SUATTDRO 19:05 → INTOOBSV 19:05 → 2W 20:04

== ENCOUNTER 2021-03-02 16:57 | Inpatient (IN) ==
--- NOTE | 2021-03-02 17:26 | Emergency Department Note ---
Impression & Plan Left-sided chest pain, Elevated troponin, Left shoulder pain, Non-ST elevation [place] (NSTEMI) ED Provider Note NAME: KAREN RODRIGUES AGE: 80 SEX: F : 1940 ARRIVES VIA: Walk-In INFORMANT: [Patient] ED PROVIDER(S): [Dionisio Ely MD] CHIEF COMPLAINT: Chest pain, doctor referred HISTORY OF PRESENT ILLNESS: The patient is a 80-year-old female who has had 3 days of left chest pain, left scapular pain and left arm pain. The pain was a 4 or 5 on a scale of 1 out of 10. It was constant. Taking a deep breath made things a bit worse. She was not short of breath, no sweating or nausea. Patient states that for the last 5 hours, she has been pain-free. The patient spoke with her doctor's office about her discomfort, she was referred for the possibility of a heart attack. She has no coronary history. She never had a DVT or PE. REVIEW OF SYSTEMS: See HPI for pertinent positives and negatives. A total of ten systems were reviewed and were otherwise negative. PMHx/PSHx: See Below SOCIAL HISTORY: See Below. PHYSICAL EXAM: GENERAL: Patient is in no acute distress. HEENT: No acute trauma, normocephalic atraumatic, mucous membranes moist, no nasal congestion, no scleral icterus. NECK: No stridor, no adenopathy, no meningismus, trachea is midline. LUNGS: Clear to auscultation bilaterally, no wheeze, no rhonchi, breath sounds equal. Chest: Nontender chest wall. HEART: Without murmurs gallops or rubs, regular rate and rhythm. ABDOMEN: Soft, nontender, bowel sounds positive, no hernias, no peritonitis. EXTREMITIES: No cyanosis or edema, full range of motion of all the joints without pain or difficulty, no signs for acute trauma. NEUROLOGIC: Oriented x 3, no acute motor or sensory deficits, no focal weakness. SKIN: No rash, no jaundice, no diaphoresis. DIFFERENTIAL DIAGNOSIS: Cardiac ischemia, aortic dissection, pulmonary embolism, pneumothorax, pneumonia, pericarditis, myocarditis, esophageal rupture, GERD, cholecystitis, pancreatitis, musculoskeletal, as well as other pathologies. EMERGENCY DEPARTMENT COURSE/PROCEDURES: ECG: Indication was chest pain. The ECG shows a normal sinus rhythm with a rate of 81. There is a right bundle branch block present. There is some nonspecific ST change. No ST elevation, no PVCs. The QTC is 422. Compared to an ECG from 25 February 2019, I see no significant change. Continuous Cardiac Monitoring: An order was placed for continuous cardiac monitoring. The monitor shows a rate of 93 with normal sinus rhythm. MEDICAL DECISION MAKING: There is no leukocytosis or concerning anemia. There is a normal platelet count. No coagulopathy. D-dimer is normal. With a normal D-dimer and my low suspicion for PE, I will stop the work-up for this diagnosis. There is no significant electrolyte abnormality or kidney failure. No concerning liver enzyme elevation. No evidence for pancreatitis. ECG shows a normal sinus rhythm with a right bundle branch block. No ST elevation to s uggest acute AZ. Cardiac enzyme testing x1 does show an elevation consistent with cardiac injury. COVID testing returned negative. Chest x-ray does not show any mediastinal widening, pneumonia or pneumothorax. Patient presents with chest discomfort that had been present for 3 days. The pain is now gone. She appears to have suffered a non-ST elevation AZ. Patient was given IV Lopressor to help her blood pressure and heart rate, she was given oral aspirin. I talked to the patient about her findings, I spoke with the piano case and bench assembler. The on-call hospitalist was consulted. Past Med/Surg History Medical History DDD (degenerative disc disease) Depression Dyslipidemia HTN (hypertension) Hypothyroidism Myofascial pain Surgical History History of hysterectomy Family History Other Breast cancer Heart disease Social History Smoking Status: Never smoker Hx Alcohol Use: No Hx Substance Use: No Preferred Language: Slovak Communication Ability: Effective Beliefs That Will Affect Care: None marital status: Current Living Situation: Spouse Current Living Situation Comment: [facility] How many Children do You have: 2 Feels Safe at Home: Yes Assistive Devices: None Allergies Allergies Allergy/AdvReac Type Severity Reaction Status Date / Time mold Allergy Unknown SHORTNESS Verified 03/02/21 18:41 OF BREATH morphine Allergy Unknown ? Verified 03/02/21 18:41 shellfish derived Allergy Unknown ANAPHYLAXIS Verified 03/02/21 18:41 Dust Allergy Unknown SHORTNESS Uncoded 03/02/21 18:41 OF BREATH Home Meds Home Medications Medication Instructions Recorded Confirmed multivitamin with minerals 1 tab PO QAM 02/25/19 03/02/21 (One-A-Day Maximum Formula) omega 3 350 mg-dha 235 mg-epa 90 1 cap PO QAM 02/25/19 03/02/21 mg-fish oil 597 mg capsule,delay rel ([place]-3) omeprazole 20 mg capsule,delayed 20 mg PO QAM 02/25/19 03/02/21 release aspirin 81 mg tablet,delayed 81 mg PO DAILY 09/11/20 03/02/21 release (Adult Aspirin Regimen) cetirizine 10 mg tablet 10 mg PO HS 09/11/20 03/02/21 hydrocodone 5 mg-acetaminophen 325 1 tab PO DAILY PRN 09/11/20 03/02/21 mg tablet bupropion HCl 300 mg 24 hr tablet, 300 mg PO QAM 10/12/20 03/02/21 extended release albuterol sulfate 90 mcg/actuation 2 puff INHALATION Q4 PRN 03/02/21 03/02/21 aerosol inhaler buspirone 10 mg tablet 10 mg PO BID 03/02/21 03/02/21 levothyroxine 100 mcg tablet 100 mcg PO DAILYBB 03/02/21 03/02/21 (Synthroid) lutein 20 mg tablet 20 mg PO DAILY 03/02/21 03/02/21 telmisartan 40 mg tablet 80 mg PO HS 03/02/21 03/02/21 Previous Rx's Medication Instructions Recorded pravastatin 80 mg tablet 80 mg PO DAILY #30 tab 02/28/19 Results & Data (ED) Vital Signs Vital Signs - 24 hr 03/02/21 16:58 03/02/21 17:02 03/02/21 17:22 Temperature 36.2 C L Temperature Source Temporal Artery Scan Pulse Rate 93 H Pulse Rate [Finger] 85 Pulse Rhythm [Finger] Regular Pulse Strength [Finger] Normal Respiratory Rate 18 16 Respiratory Effort / Characteristics Non-Labored Respiratory Depth Normal Respiratory Pattern Regular Blood Pressure 155/95 H Blood Pressure [Right Arm] 178/103 H Blood Pressure Mean 115 Blood Pressure Mean [Right Arm] 128 Blood Pressure Position [Right Arm] Lying Pulse Oximetry 99 100 100 Oxygen Delivery Method Room Air Room Air Room Air Sepsis Recent Fever Within 48 Hours No Sepsis New/Unexplained Change in Mental Status No Sepsis Action Taken by Nursing No Action Required 03/02/21 18:58 03/02/21 19:04 03/02/21 19:31 Temperature Temperature Source Pulse Rate 80 66 Pulse Rate [Finger] 73 Pulse Rhythm [Finger] Regular Pulse Strength [Finger] Normal Respiratory Rate 20 Respiratory Effort / Characteristics Non-Labored Respiratory Depth Normal Respiratory Pattern Blood Pressure 215/110 H 157/83 H Blood Pressure [Right Arm] 215/110 H Blood Pressure Mean 107 Blood Pressure Mean [Right Arm] 145 Blood Pressure Position [Right Arm] Sitting Pulse Oximetry 100 100 Oxygen Delivery Method Room Air Sepsis Recent Fever Within 48 Hours Sepsis New/Unexplained Change in Mental Status Sepsis Action Taken by Residential Medications Current Medication List: was personally reviewed by me Laboratory Data Attestation: I reviewed the patient's lab results. Result diagrams: 03/02/21 17:55 03/02/21 17:55 Lab Results 03/02/21 03/02/21 03/02/21 Range/Units 17:55 17:55 17:55 WBC 7.31 (4.8-10.8) K/uL RBC 4.03 L (4.2-5.4) M/uL Hgb 12.7 (12.0-16.0) g/dL Hct 38.6 (37-47) % MCV 95.8 (80-100) fL MCH 31.5 (25-34) pg MCHC 32.9 (32-36) g/dL RDW Std Deviation 44.3 (36.4-46.3) fL RDW Coeff of Anel 12.5 (11.5-14.5) % Plt Count 268 (130-400) K/uL MPV 10.4 (7.4-10.4) fL Immature Gran % (Auto) 0.0 % Neut % (Auto) 62.4 % Lymph % (Auto) 25.3 % Cuming % (Auto) 9.8 % Eos % (Auto) 2.2 % Baso % (Auto) 0.3 % Neut # (Auto) 4.56 (1.4-6.5) K/uL Lymph # (Auto) 1.85 (1.2-3.4) K/uL Cuming # (Auto) 0.72 H (0.11-0.59) K/uL Eos # (Auto) 0.16 (0-0.5) K/uL Baso # (Auto) 0.02 (0-0.2) K/uL Immature Gran # (Auto) 0.00 (0.00-0.02) K/uL D-Dimer 400 (0-500) ug/L FEU Sodium 141 (136-145) mmol/L Potassium 3.9 (3.5-5.1) mmol/L Chloride 110 H (98-107) mmol/L Carbon Dioxide 24 (21-32) mmol/L Anion Gap 7 (3-11) BUN 15 (6-23) mg/dl Creatinine 0.90 (0.6-1.2) mg/dl Est Cr Clr Drug Dosing 47.0 ml/min Est GFR ( Amer) 70.5 ml/min Est GFR (Non-Af Amer) 60.8 ml/min BUN/Creatinine Ratio 16.7 (10-20) Glucose 83 (70-99) mg/dl Calcium 9.0 (8.5-10.1) mg/dl Total Bilirubin 0.3 (0.2-1.0) mg/dl AST 42 H (13-39) U/L ALT 22 (7-52) U/L Alkaline Phosphatase 89 (34-104) U/L Troponin I 3.18 H* (0-0.04) ng/ml Total Protein 6.5 (6.0-8.3) gm/dl Albumin 3.8 (3.4-5.0) gm/dl Globulin 2.7 (2.5-4.0) gm/dl Albumin/Globulin Ratio 1.4 (0.9-2) Lipase 17 (11-82) U/L SARS-CoV-2, RNA, NAAT (NEGATIVE) 03/02/21 Range/Units 19:40 WBC (4.8-10.8) K/uL RBC (4.2-5.4) M/uL Hgb (12.0-16.0) g/dL Hct (37-47) % MCV (80-100) fL MCH (25-34) pg MCHC (32-36) g/dL RDW Std Deviation (36.4-46.3) fL RDW Coeff of Anel (11.5-14.5) % Plt Count (130-400) K/uL MPV (7.4-10.4) fL Immature Gran % (Auto) % Neut % (Auto) % Lymph % (Auto) % Cuming % (Auto) % Eos % (Auto) % Baso % (Auto) % Neut # (Auto) (1.4-6.5) K/uL Lymph # (Auto) (1.2-3.4) K/uL Cuming # (Auto) (0.11-0.59) K/uL Eos # (Auto) (0-0.5) K/uL Baso # (Auto) (0-0.2) K/uL Immature Gran # (Auto) (0.00-0.02) K/uL D-Dimer (0-500) ug/L FEU Sodium (136-145) mmol/L Potassium (3.5-5.1) mmol/L Chloride (98-107) mmol/L Carbon Dioxide (21-32) mmol/L Anion Gap (3-11) BUN (6-23) mg/dl Creatinine (0.6-1.2) mg/dl Est Cr Clr Drug Dosing ml/min Est GFR ( Amer) ml/min Est GFR (Non-Af Amer) ml/min BUN/Creatinine Ratio (10-20) Glucose (70-99) mg/dl Calcium (8.5-10.1) mg/dl Total Bilirubin (0.2-1.0) mg/dl AST (13-39) U/L ALT (7-52) U/L Alkaline Phosphatase (34-104) U/L Troponin I (0-0.04) ng/ml Total Protein (6.0-8.3) gm/dl Albumin (3.4-5.0) gm/dl Globulin (2.5-4.0) gm/dl Albumin/Globulin Ratio (0.9-2) Lipase (11-82) U/L SARS-CoV-2, RNA, NAAT NEGATIVE (NEGATIVE) Administered Medications Discontinued Medications Aspirin (Aspirin Chew 324 Mg) 324 mg PO NOW STA Stop: 03/02/21 18:41 Last Admin: 03/02/21 19:04 Dose: 324 mg Documented by: [id number] Metoprolol Tartrate (Metoprolol Tartrate 1 Mg/Ml Vial) 5 mg IV NOW STA Stop: 03/02/21 18:45 Last Admin: 03/02/21 19:04 Dose: 5 mg Documented by: [id number] Imaging Data Radiologist's Impression: Chest X-Ray 03/02/21 17:22 XR chest 1V portable CLINICAL HISTORY: Atypical chest pain. COMPARISON STUDY: Chest radiograph February 25, 2019. FINDINGS: Lung volumes are normal. Lungs are clear. There is no pneumothorax or pleural effusion. Cardiac size is stable. There is a probable hiatal hernia. There is no evidence for pulmonary edema. IMPRESSION: 1. No acute cardiopulmonary findings. 2. Probable hiatal hernia. ACT 112: Negative or not required by law. Electronically signed by: Roldan Apple M.D. 03/02/2021 5:49 PM Discharge Plan Visit Data Chief Complaint: Referred by Doctor Stated Complaint: REF BY FOR EKG, CHEST PAIN AND DIZZY LAST NIGHT ED Provider: Dionisio Ely Discharge Problem: Left-sided chest pain, Elevated troponin, Left shoulder pain, Non-ST elevation [place] (NSTEMI) Patient Disposition: Admitted As Inpatient Condition: Fair Forms Stand Alone Forms: What's Trending Prescriptions Prescriptions: No Action hydrocodone-acetaminophen 5-325 mg tablet 1 tab PO DAILY PRN (Reason: Pain, Moderate) RF: 0 cetirizine 10 mg tablet 10 mg PO HS RF: 0 aspirin [Adult Aspirin Regimen] 81 mg tablet,delayed release (DR/EC) 81 mg PO DAILY RF: 0 bupropion HCl 300 mg tablet extended release 24 hr 300 mg PO QAM RF: 0 omeprazole 20 mg capsule,delayed release(DR/EC) 20 mg PO QAM RF: 0 One-A-Day Maximum Formula Tablet 1 tab PO QAM RF: 0 [place]-3 350 mg-235 mg- 90 mg-597 mg Capsule,Delayed Release(Dr/Ec) 1 cap PO QAM RF: 0 pravastatin 80 mg tablet 80 mg PO DAILY Qty: 30 RF: 0 levothyroxine [Synthroid] 100 mcg tablet 100 mcg PO DAILYBB RF: 0 buspirone 10 mg tablet 10 mg PO BID RF: 0 albuterol sulfate 90 mcg/actuation HFA aerosol inhaler 2 puff INHALATION Q4 PRN (Reason: Wheezing) RF: 0 telmisartan 40 mg tablet 80 mg PO HS RF: 0 lutein 20 mg Tablet 20 mg PO DAILY RF: 0 Referrals Referrals: Raghu Armenta DO [Primary Care Provider] -
--- NOTE | 2021-03-02 17:51 | XRay Report ---
XR chest 1V portable CLINICAL HISTORY: Atypical chest pain. COMPARISON STUDY: Chest radiograph February 25, 2019. FINDINGS: Lung volumes are normal. Lungs are clear. There is no pneumothorax or pleural effusion. Car diac size is stable. There is a probable hiatal hernia. There is no evidence for pulmonary edema. IMPRESSION: 1. No acute cardiopulmonary findings. 2. Probable hiatal hernia. ACT 112: Negative or not required by law. Electronically signed by: Roldan Apple M.D. 03/02/2021 5:49 PM
[2021-03-02 18:04] LABS: Basophils # (auto) 0.02 K/uL (0-0.2); Basophils % (auto) 0.3 %; Eosinophils # (auto) 0.16 K/uL (0-0.5); Eosinophils % (auto) 2.2 %; Hematocrit (blood only) 38.6 % (37-47); Hemoglobin 12.7 g/dL (12.0-16.0); Lymphocytes # (auto) 1.85 K/uL (1.2-3.4); Lymphocytes % (auto) 25.3 %; Mean Corpuscular Hemoglobin 31.5 pg (25-34); Mean Corpuscular Hgb Conc 32.9 g/dL (32-36); Mean Corpuscular Volume 95.8 fL (80-100); Mean Platelet Volume 10.4 fL (7.4-10.4); Monocytes # (auto) 0.72 K/uL (0.11-0.59); Monocytes % (auto) 9.8 %; Neutrophils # (auto) 4.56 K/uL (1.4-6.5); Neutrophils % (auto) 62.4 %; Platelet Count 268 K/uL (130-400); RDW Coefficient of Variation 12.5 % (11.5-14.5); RDW Standard Deviation 44.3 fL (36.4-46.3); Red Blood Count 4.03 M/uL (4.2-5.4); White Blood Count 7.31 K/uL (4.8-10.8)
[2021-03-02 18:17] LABS: D Dimer 400 ug/L FEU (0-500)
[2021-03-02 18:31] LABS: Albumin Globulin Ratio 1.4 (0.9-2); Albumin Level 3.8 gm/dl (3.4-5.0); BUN Creatinine Ratio 16.7 (10-20); Bilirubin,Total 0.3 mg/dl (0.2-1.0); Est GFR (African American) 70.5 ml/min; Est GFR (Non-African American) 60.8 ml/min; Globulin 2.7 gm/dl (2.5-4.0); Potassium 3.9 mmol/L (3.5-5.1); Total Protein 6.5 gm/dl (6.0-8.3)
[2021-03-02 18:36] LABS: Troponin I 3.18 ng/ml (0-0.04)
[2021-03-02] MEDS ORDERED: ASPIRIN CHEW 324 MG PO STA (18:40)
[2021-03-02] MEDS ORDERED: METOPROLOL TARTRATE 1 MG/ML VIAL IV STA (18:44)
[2021-03-02] MEDS ORDERED: Heparin IV Adult Wt-Based Standard WITH Bolus Protocol IV STA (19:51)
[2021-03-02] MEDS ORDERED: HEPARIN SOD (PORCINE) 1000 UNIT/ML IV ONE ×2 (20:05→20:30)
--- NOTE | 2021-03-02 20:10 | History & Physical Report ---
Date of Service March 02, 2021 Assessment & Plan (1) Elevated troponin: (2) Chest pain: (3) HTN (hypertension): (4) Hypothyroidism: (5) Dyslipidemia: (6) Depression: (7) DDD (degenerative disc disease): Plan: Chest pain and Elevated trop: -currently pt does not have any symptoms -EKG: NSR with HR of 81 BPM. TWI on Lead III, V1, and V3. Possible T wave flattening on V5. RBBB. Compared to previous EKG: new TWI on V3 and T wave flattening on V5 -s/p aspirin 324mg -DON score of 5 -will start the pt on heparin drip ---- PTT q6hrs -Protonix daily - initial trop of 3.18 -trend trop and EKG -echo tomorrow -Cards consults -NPO for now and admit to tele HTN: -BP is elevated in the ER -s/p IV metoprolol 5mg once - for now continue the pt on home HTN med (pt takes her med at bed time) HLD: -c/w statin DDD, depression, Hypothyroidism: -c/w home meds Diet: NPO for now DVT PPx: Heparin Gtt Code Status: Full Code Emergency Contact: Daughter- Yumi [phone] History of Present Illness Chief Complaint: chest pain Primary Care Provider: Raghu Armenta DO Pt is a 80 y/o F with hx of HLD, Hypothyroidism, HTN, CKD III, BCC, DDD, AMANDA, depression, hypothyroidism, DDD came to the ER with 3 day hx of substernal chest pain, L scapula pain, L arm pain and nausea. Per pt her chest pain slightly worsened with deep breathing. Denied any associated SOB, diaphoresis, dizziness, vomiting, abd pain or syncope. No change in chest pain with exertion. Symptoms were worse yesterday night and resolved around noon on the day of admission. At bedside: she denied any acute symptoms. -Denied any hx of recent GI bleed. Cardiac stress test (2019): The Dobutamine stress echo is negative for inducible ischemia. The qualitative LV ejection fraction is 55-59% (normal). Allergies Allergy/AdvReac Type Severity Reaction Status Date / Time mold Allergy Unknown SHORTNESS Verified 03/02/21 18:41 OF BREATH morphine Allergy Unknown ? Verified 03/02/21 18:41 shellfish derived Allergy Unknown ANAPHYLAXIS Verified 03/02/21 18:41 Dust Allergy Unknown SHORTNESS Uncoded 03/02/21 18:41 OF BREATH Home Medications Medication Instructions Recorded Confirmed Type multivitamin with minerals 1 tab PO QAM 02/25/19 03/02/21 History (One-A-Day Maximum Formula) omega 3 350 mg-dha 235 mg-epa 90 1 cap PO QAM 02/25/19 03/02/21 History mg-fish oil 597 mg capsule,delay rel ([place]-3) omeprazole 20 mg capsule,delayed 20 mg PO QAM 02/25/19 03/02/21 History release pravastatin 80 mg tablet 80 mg PO DAILY #30 tab 02/28/19 03/02/21 Rx aspirin 81 mg tablet,delayed 81 mg PO DAILY 09/11/20 03/02/21 History release (Adult Aspirin Regimen) cetirizine 10 mg tablet 10 mg PO HS 09/11/20 03/02/21 History hydrocodone 5 mg-acetaminophen 325 1 tab PO DAILY PRN 09/11/20 03/02/21 History mg tablet bupropion HCl 300 mg 24 hr tablet, 300 mg PO QAM 10/12/20 03/02/21 History extended release albuterol sulfate 90 mcg/actuation 2 puff INHALATION Q4 PRN 03/02/21 03/02/21 History aerosol inhaler buspirone 10 mg tablet 10 mg PO BID 03/02/21 03/02/21 History levothyroxine 100 mcg tablet 100 mcg PO DAILYBB 03/02/21 03/02/21 History (Synthroid) lutein 20 mg tablet 20 mg PO DAILY 03/02/21 03/02/21 History telmisartan 40 mg tablet 80 mg PO HS 03/02/21 03/02/21 History Past Med/Surg History Medical History (Updated 03/02/21 @ 20:08 by Kayla Gates MD) DDD (degenerative disc disease) Depression Dyslipidemia HTN (hypertension) Hypothyroidism Myofascial pain Surgical History History of hysterectomy Family History Other Breast cancer Heart disease Social History Smoking Status: Never smoker Hx Alcohol Use: No Hx Substance Use: No Preferred Language: Maori Communication Ability: Effective Beliefs That Will Affect Care: None marital status: Current Living Situation: Spouse Current Living Situation Comment: [facility] [employer] How many Children do You have: 2 Feels Safe at Home: Yes Assistive Devices: None Review of Systems Review of Systems: At least 10 Review of systems were reviewed and all negative except as indicated in HPI Physical Exam Physical Exam: General:. NAD, well developed, well nourished, average body habitus HEENT:. Normocephalic and atraumatic, Normal Conjunctiva, EOMI, Sclera is non- icteric Lungs:. No signs of respiratory distress, CTA, no wheezing or crackles Heart:. Normal S1, S2, no murmur Abdominal:. ND, Soft, NT MSK:.trace pitting edema of the distal b/l LE, No deformities of UE and LE Skin:. no rash or open wound Psych:. AAOx3, normal affect Results & Data Results & Data ([facility]) Vital Signs (Past 12 Hours) Vital Signs Temp Pulse Pulse Resp BP BP Pulse Ox 03/02/21 19:31 66 157/83 H 100 03/02/21 19:04 80 215/110 H 03/02/21 18:58 73 20 215/110 H 100 03/02/21 17:22 100 03/02/21 17:02 36.2 C L 93 H 16 155/95 H 100 03/02/21 16:58 85 18 178/103 H 99 Laboratory Results Short CBC 03/02/21 Range/Units 17:55 WBC 7.31 (4.8-10.8) K/uL Hgb 12.7 (12.0-16.0) g/dL Hct 38.6 (37-47) % Plt Count 268 (130-400) K/uL BMP 03/02/21 17:55 Sodium 141 Potassium 3.9 Chloride 110 H Carbon Dioxide 24 BUN 15 Creatinine 0.90 Glucose 83 Calcium 9.0 Cardiac Enzymes 03/02/21 Range/Units 17:55 Troponin I 3.18 H* (0-0.04) ng/ml Liver Function 03/02/21 Range/Units 17:55 Total Bilirubin 0.3 (0.2-1.0) mg/dl AST 42 H (13-39) U/L ALT 22 (7-52) U/L Alkaline Phosphatase 89 (34-104) U/L Albumin 3.8 (3.4-5.0) gm/dl Diagnostic Findings Chest X-Ray 03/02/21 17:22 XR chest 1V portable CLINICAL HISTORY: Atypical chest pain. COMPARISON STUDY: Chest radiograph February 25, 2019. FINDINGS: Lung volumes are normal. Lungs are clear. There is no pneumothorax or pleural effusion. Cardiac size is stable. There is a probable hiatal hernia. There is no evidence for pulmonary edema. IMPRESSION: 1. No acute cardiopulmonary findings. 2. Probable hiatal hernia. ACT 112: Negative or not required by law. Electronically signed by: Roldan Apple M.D. 03/02/2021 5:49 PM ECG Additional Comments: NSR with HR of 81 BPM. TWI on Lead III, V1, and V3. Possible T wave flattening on V5. RBBB. Compared to previous EKG: new TWI on V3 and T wave flattening on V5 Code Status & VTE Plan VTE Prophylaxis Plan VTE Prophylaxis will be ordered: Yes
[2021-03-02 20:21] LABS: Partial Thromboplastin Ratio 0.9; Partial Thromboplastin Time 23.1 Seconds (21.0-31.0)
[2021-03-02] MEDS: HEPARIN SODIUM/DEXTROSE 25,000 UNITS/500 ML BAG IV SCH (20:38)
[2021-03-02] MEDS ORDERED: ALBUTEROL HFA 8 GM INHALER INH PRN (21:26)
[2021-03-02] MEDS: busPIRone 5 MG TAB PO SCH (22:04)
[2021-03-02] MEDS: TELMISARTAN 40 MG TAB PO SCH (22:04)
[2021-03-02] MEDS: CETIRIZINE HCL 10 MG TABLET PO SCH (22:04)
[2021-03-03] MEDS ORDERED: METOPROLOL TARTRATE 25 MG TAB PO STA (01:12)
[2021-03-03] MEDS ORDERED: D5W AND LACTATED RINGERS 1,000 ML IV SCH (01:15)
[2021-03-03 02:25] LABS: Basophils # (auto) 0.03 K/uL (0-0.2); Basophils % (auto) 0.4 %; Eosinophils % (auto) 2.6 %; Hematocrit (blood only) 37.7 % (37-47); Hemoglobin 12.4 g/dL (12.0-16.0); Immature Granulocytes # (auto) 0.02 K/uL (0.00-0.02); Immature Granulocytes % (auto) 0.3 %; Lymphocytes # (auto) 2.83 K/uL (1.2-3.4); Lymphocytes % (auto) 36.8 %; Mean Corpuscular Hemoglobin 30.9 pg (25-34); Mean Corpuscular Hgb Conc 32.9 g/dL (32-36); Mean Platelet Volume 10.4 fL (7.4-10.4); Monocytes # (auto) 0.61 K/uL (0.11-0.59); Monocytes % (auto) 7.9 %; Platelet Count 251 K/uL (130-400); RDW Coefficient of Variation 12.4 % (11.5-14.5); RDW Standard Deviation 42.8 fL (36.4-46.3); Red Blood Count 4.01 M/uL (4.2-5.4); White Blood Count 7.69 K/uL (4.8-10.8)
[2021-03-03 02:53] LABS: Albumin Globulin Ratio 1.4 (0.9-2); Albumin Level 3.4 gm/dl (3.4-5.0); BUN Creatinine Ratio 19.2 (10-20); Bilirubin,Total 0.5 mg/dl (0.2-1.0); Calcium 8.6 mg/dl (8.5-10.1); Chol HDL Ratio 2.7; Creatinine Clr Calc Pharmacy 58.1 ml/min; Est GFR (African American) 90.8 ml/min; Est GFR (Non-African American) 78.3 ml/min; Globulin 2.4 gm/dl (2.5-4.0); Potassium 3.8 mmol/L (3.5-5.1); Total Protein 5.8 gm/dl (6.0-8.3)
[2021-03-03 02:54] LABS: Partial Thromboplastin Ratio 4.6
[2021-03-03 03:02] LABS: Troponin I 3.6 ng/ml (0-0.04)
[2021-03-03 03:11] LABS: Partial Thromboplastin Time 119.8 Seconds (21.0-31.0)
[2021-03-03] MEDS: LEVOTHYROXINE SODIUM 100 MCG TABLET PO SCH (05:14)
[2021-03-03] MEDS ORDERED: PERFLUTREN LIPID MICROSPHERE (DEFINITY) IV ONE (08:11)
[2021-03-03] MEDS: busPIRone 5 MG TAB PO SCH ×2 (08:33→20:24)
[2021-03-03] MEDS: buPROPion XL 300 MG TABCR PO SCH (08:33)
[2021-03-03] MEDS: ASPIRIN 81 MG ECTAB PO SCH (08:33)
[2021-03-03] MEDS: PANTOprazole 40 MG TAB PO SCH (08:33)
[2021-03-03] MEDS ORDERED: PRAVASTATIN SOD 40 MG TAB PO SCH (09:00)
--- NOTE | 2021-03-03 09:57 | Electrocardiogram Report ---
Test Reason : Blood Pressure : / mmHG Vent. Rate : 081 BPM Atrial Rate : 081 BPM P-R Int : 170 ms QRS Dur : 122 ms QT Int : 364 ms P-R-T Axes : 055 -07 -22 degrees QTc Int : 422 ms Normal sinus rhythm Right bundle branch block Nonspecific T wave abnormality Abnormal ECG When compared with ECG of 25-FEB-2019 16:40, Premature atrial complexes are no longer Present QT has shortened Nonspecific T wave abnormality is now present Confirmed by Samir Carlos ([id number]) on 03/03/2021 9:56:54 AM Referred By: Raghu Armenta Confirmed By:Samir Carlos
--- NOTE | 2021-03-03 10:14 | Electrocardiogram Report ---
Test Reason : Blood Pressure : / mmHG Vent. Rate : 061 BPM Atrial Rate : 061 BPM P-R Int : 236 ms QRS Dur : 126 ms QT Int : 450 ms P-R-T Axes : 065 011 -25 degrees QTc Int : 453 ms Sinus rhythm with 1st degree A-V block Right bundle branch block Abnormal ECG When compared with ECG of 02-MAR-2021 17:08, (unconfirmed) MS interval has increased T wave inversion no longer evident in Anterior leads Confirmed by Samir Carlos ([id number]) on 03/03/2021 10:13:41 AM Referred By: Raghu Armenta Confirmed By:Samir Carlos
[2021-03-03 10:59] LABS: Partial Thromboplastin Time 77.7 Seconds (21.0-31.0)
--- NOTE | 2021-03-03 11:24 | Cardiology Consultation ---
Date of Consultation March 03, 2021 Assessment & Plan (1) Left-sided chest pain: (2) Elevated troponin: (3) Left shoulder pain: (4) DDD (degenerative disc disease): (5) Myofascial pain: (6) Lumbar facet joint syndrome: (7) HTN (hypertension): (8) Dyslipidemia: 80-year-old woman presents with atypical chest discomfort. No profound ischemia on EKG. Resting echocardiogram with possible inferior hypokinesis but preserved LV systolic function. Given the fact that her discomfort is completely reproducible obviously this goes against acute coronary syndrome. I am not quite sure what to make of her troponin though given that was elevated up to 4. It is trending down now Recommend supportive local care for her somatic dysfunction Further ischemic work-up prior to discharge may be considered with Lexiscan nuclear stress test or possible cardiac catheterization. The above was reviewed with the patient and she is in agreement with the plan. Recommend continued aspirin 81 mg daily. On pravastatin as an outpatient which I will change to atorvastatin at this time. Continue heparin for 48 hours. Should she develop any further chest discomfort or significant EKG changes emergent cardiac catheterization may be necessary. History of Present Illness Reason for Consultation: Chest pain Requesting Physician: Dr. Knapp Attending Physician: Sae Bah MD History of Present Illness The patient is a very pleasant 80-year-old woman who presented to [facility] on 03/02/2021 with complaints of chest and back pain. She states that the discomfort started late in the evening of 02/28/2021. She described as a sharp stabbing pain across her left sternal border with radiation through to her back in the mid scapular region. She states it was worse with deep inhalation or movement. She denied any associated shortness of breath, diaph oresis, nausea, palpitations or lightheadedness. She states that she has had similar episodes in the past but this is the most severe. She notes that she has been immobile for over the last year due to chronic low back pain. She was sitting down watching television at the time the discomfort started. She states that she is now without any discomfort. Allergies Allergy/AdvReac Type Severity Reaction Status Date / Time mold Allergy Unknown SHORTNESS Verified 03/02/21 18:41 OF BREATH morphine Allergy Unknown ? Verified 03/02/21 18:41 shellfish derived Allergy Unknown ANAPHYLAXIS Verified 03/02/21 18:41 Home Medications Medication Instructions Recorded Confirmed Type multivitamin with minerals 1 tab PO QAM 02/25/19 03/02/21 History (One-A-Day Maximum Formula) omega 3 350 mg-dha 235 mg-epa 90 1 cap PO QAM 02/25/19 03/02/21 History mg-fish oil 597 mg capsule,delay rel ([place]-3) omeprazole 20 mg capsule,delayed 20 mg PO QAM 02/25/19 03/02/21 History release pravastatin 80 mg tablet 80 mg PO DAILY #30 tab 02/28/19 03/02/21 Rx aspirin 81 mg tablet,delayed 81 mg PO DAILY 09/11/20 03/02/21 History release (Adult Aspirin Regimen) cetirizine 10 mg tablet 10 mg PO HS 09/11/20 03/02/21 History hydrocodone 5 mg-acetaminophen 325 1 tab PO DAILY PRN 09/11/20 03/02/21 History mg tablet bupropion HCl 300 mg 24 hr tablet, 300 mg PO QAM 10/12/20 03/02/21 History extended release albuterol sulfate 90 mcg/actuation 2 puff INHALATION Q4 PRN 03/02/21 03/02/21 History aerosol inhaler buspirone 10 mg tablet 10 mg PO BID 03/02/21 03/02/21 History levothyroxine 100 mcg tablet 100 mcg PO DAILYBB 03/02/21 03/02/21 History (Synthroid) lutein 20 mg tablet 20 mg PO DAILY 03/02/21 03/02/21 History telmisartan 40 mg tablet 80 mg PO HS 03/02/21 03/02/21 History Patient History Medical History DDD (degenerative disc disease) Depression Dyslipidemia HTN (hypertension) Hypothyroidism Myofascial pain Surgical History History of hysterectomy Family History Other Breast cancer Heart disease Social History Smoking Status: Former smoker Hx Alcohol Use: No Hx Substance Use: No Preferred Language: Gabonese Communication Ability: Effective 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 No acute distress. HEENT: Normocephalic, atraumatic. Pupils equal, round and reactive to light and accommodation. Extraocular muscles are intact. Anicteric sclera. Moist mucous membranes. Neck: No JVD. No bruit. Cardiovascular: Regular. Positive S-4. Normal S-1 and S-2. No S-3. 3/6 holosystolic ejection murmur, left sternal border, mid-clavicular line with radiation to the axilla. No rubs. Pulmonary: Clear to auscultation bilaterally. No rales, rhonchi, or wheezing. Abdomen: Bowel sounds x 4, soft. No rebound, guarding or tenderness. No organomegaly. Extremities: No clubbing, cyanosis or edema. +2 pedal pulses bilaterally. Skin: Warm and dry. Musculoskeletal: Direct palpation of the left sixth rib revealed somatic dysfunction with ribs stuck in exhalation. Pain was reproduced with direct palpation Results & Data ([facility]) Vital Signs (Past 12 Hours) Vital Signs Temp Pulse Pulse Resp BP Pulse Ox 03/03/21 07:46 65 03/03/21 07:15 37.0 C 63 17 115/71 97 03/03/21 02:55 36.7 C 75 16 151/73 H 98 Diagnostic Findings Stress test 11/17/18: Interpretation Summary The examination is adequate to evaluate the referral indication. The Dobutamine stress echo is negative for inducible ischemia. The qualitative LV ejection fraction is 55-59% (normal). The LV wall thickness is mildly increased (concentric). The left ventricular wall motion is normal. The left ventricular diastolic function is mildly abnormal (grade I). The left ventricular ejection fraction increases normally with stress. Mild mitral regurgitation is present. Mild tricuspid regurgitation is present. The estimated pulmonary artery systolic pressure is 32mm Hg. (1) Left shoulder pain Chronicity: acute Qualified Code(s): M25.512 - Pain in left shoulder
[2021-03-03 18:14] LABS: Partial Thromboplastin Ratio 2.7
[2021-03-03 18:16] LABS: Partial Thromboplastin Time 70.8 Seconds (21.0-31.0)
[2021-03-03] MEDS: TELMISARTAN 40 MG TAB PO SCH (20:23)
[2021-03-03] MEDS: METOPROLOL TARTRATE 25 MG TAB PO SCH (20:24)
[2021-03-03] MEDS: CETIRIZINE HCL 10 MG TABLET PO SCH (20:24)
--- NOTE | 2021-03-03 23:47 | Hospitalist Progress Note ---
Date of Service March 03, 2021 Assessment & Plan (1) Elevated troponin: (2) Chest pain: (3) HTN (hypertension): (4) Hypothyroidism: (5) Dyslipidemia: (6) Depression: (7) DDD (degenerative disc disease): Plan: Present on admission with chest pain associated with nausea that radiated to left upper extremity Troponin on admission 3.18 then 4.24, now trending down to 3.60 EKG showed no significant ischemia Currently on IV heparin drip that was started on admission Echo showed possible inferior hypokinesis but preserved LV function with ejection fraction 50 to 55% Cardiology on board Case discussed with cardiology that recommend to continue heparin drip for 48 hours Cardiology might consider Lexiscan nuclear stress test or possible cardiac cath during this admission We will continue aspirin 81 mg, metoprolol 25 mg twice daily and Statin (prava statin was changed to atorvastatin per cardiology) If patient develop any chest discomfort or significant EKG changes will notify cardiology for possible emergent cardiac cath We will continue monitor closely in PCU HTN: BP is elevated in the ER possible related to hospital setting Continue metoprolol and telmisartan Continue monitor BP HLD: Cholesterol 141, LDL 72, and HDL 52 Pravastatin changed to atorvastatin Hypothyroidism: Continue levothyroxine DVT PPx: Heparin Gtt Code Status: Full Code Emergency Contact: Jovan Eason [phone] Admission and Anticipated Discharge Date Admission Date: March 02, 2021 Subjective Patient was seen and examined for follow-up of chest pain and elevated troponin Lying in bed in no acute distress Patient said that she feels much better Denies any chest pain, palpitation, dizziness, shortness of breath. Review of Systems Review of Systems: All systems reviewed & are unremarkable except as noted in Subjective Physical Exam Physical Exam: General- No acute distress Head- atraumatic Eyes- PERRL, EOMI, ENT- oropharynx clear Neck- supple, no JVD Lungs- clear to auscultation Heart- regular rhythm; +murmur Abdomen- normal bowel sounds, soft, nontender Extremities- no calf tenderness Neuro- alert, oriented x 3; PERRL, EOMI; no facial palsy; no dysarthria Skin- warm & dry Results & Data Results & Data ([facility]) Vital Signs (Past 12 Hours) Vital Signs Temp Pulse Pulse Resp BP Pulse Ox 03/03/21 23:03 37.0 C 70 20 135/66 98 01/16/22 19:33 36.5 C 69 18 113/75 97 03/03/21 15:58 36.9 C 61 17 137/73 99 03/03/21 15:23 66
[2021-03-03] MEDS: HEPARIN SODIUM/DEXTROSE 25,000 UNITS/500 ML BAG IV SCH (23:58)
[2021-03-03] MEDS: HYDROCODONE/ACETAMOPHEN 5/325MG TAB PO PRN (23:59)
[2021-03-04 04:16] LABS: Partial Thromboplastin Ratio 2.3
[2021-03-04 04:18] LABS: Partial Thromboplastin Time 61.8 Seconds (21.0-31.0)
[2021-03-04] MEDS: LEVOTHYROXINE SODIUM 100 MCG TABLET PO SCH (06:01)
[2021-03-04] MEDS: buPROPion XL 300 MG TABCR PO SCH (08:11)
[2021-03-04] MEDS: ASPIRIN 81 MG ECTAB PO SCH (08:11)
[2021-03-04] MEDS: METOPROLOL TARTRATE 25 MG TAB PO SCH ×2 (08:11→20:50)
[2021-03-04] MEDS: busPIRone 5 MG TAB PO SCH ×2 (08:11→20:50)
[2021-03-04] MEDS: ATORVASTATIN 40 MG TAB PO SCH (08:12)
[2021-03-04] MEDS: PANTOprazole 40 MG TAB PO SCH (08:13)
--- NOTE | 2021-03-04 11:22 | Cardiology Progress Note ---
Date of Service March 04, 2021 Assessment & Plan (1) Left-sided chest pain: (2) Elevated troponin: (3) Left shoulder pain: (4) DDD (degenerative disc disease): (5) Myofascial pain: (6) Lumbar facet joint syndrome: (7) HTN (hypertension): (8) Dyslipidemia: Plan: 80-year-old woman presents with atypical chest discomfort. No profound ischemia on EKG. Resting echocardiogram with possible inferior hypokinesis but preserved LV systolic function. Patient without recurrence of symptoms since admission but troponin significantly elevated. Discussed options in detail with patient and her daughter Yumi (phone #[phone]) And further discussion of the patient she does admit to prior exertional symptoms prior to presenting this admission with complaints of exertional dyspnea difficulties completing stairs. Uncertain if normal stress test would be reassuring Recommend proceeding to diagnostic coronary angiography. Procedure tentatively planned for tomorrow morning 930 Procedure discussed in detail with daughter Continue IV heparin Admission and Anticipated Discharge Date Admission Date: March 02, 2021 Subjective Patient was seen and examined, chart, medications, telemetry reviewed. Patient denies any further chest pain shoulder pain or back pain overnight. No recurrence of symptoms since ER presentation. Only issues are bruising at IV sites. No arrhythmias on telemetry Review of Systems Review of Systems: All systems reviewed & are unremarkable except as noted in Subjective Physical Exam Physical Exam: General: Awake, alert and oriented x 3. No acute distress. HEENT: Normocephalic, atraumatic. Pupils equal, round and reactive to light and accommodation. Extraocular muscles are intact. Anicteric sclera. Moist mucous membranes. Neck: No JVD. No bruit. Cardiovascular: Regular. Positive S-4. Normal S-1 and S-2. No S-3. 1/6 holosystolic ejection murmur, left sternal border, mid-clavicular line with radiation to the axilla. No rubs. Pulmonary: Clear to auscultation bilaterally. No rales, rhonchi, or wheezing. Abdomen: Bowel sounds x 4, soft. No rebound, guarding or tenderness. No organomegaly. Extremities: No clubbing, cyanosis or edema. +2 pedal pulses bilaterally. Skin: Warm and dry. Musculoskeletal: Minimal chest wall tenderness today Results & Data ([facility]) Vital Signs (Past 12 Hours) Vital Signs Temp Pulse Pulse Resp BP Pulse Ox 03/04/21 08:00 36.5 C 62 20 113/70 97 03/04/21 07:14 64 03/04/21 03:14 36.7 C 61 18 152/73 H 97 Laboratory Results Laboratory Results - last 24 hr 03/03/21 03/04/21 03/04/21 17:12 03:25 08:38 APTT 70.8 H* 61.8 H* PTT Ratio 2.7 2.3 Troponin I 2.14 H* (1) Left shoulder pain Chronicity: acute Qualified Code(s): M25.512 - Pain in left shoulder
--- NOTE | 2021-03-04 13:46 | Electrocardiogram Report ---
Test Reason : Blood Pressure : / mmHG Vent. Rate : 065 BPM Atrial Rate : 065 BPM P-R Int : 264 ms QRS Dur : 118 ms QT Int : 420 ms P-R-T Axes : 066 003 -24 degrees QTc Int : 436 ms Sinus rhythm with 1st degree A-V block Right bundle branch block Abnormal ECG When compared with ECG of 03-MAR-2021 05:10, No significant change was found Confirmed by Delfino Rm ([id number]) on 03/04/2021 1:46:22 PM Referred By: Raghu Armenta Confirmed By:Delfino Rm
[2021-03-04] MEDS: TELMISARTAN 40 MG TAB PO SCH (20:50)
[2021-03-04] MEDS: CETIRIZINE HCL 10 MG TABLET PO SCH (20:50)
[2021-03-04] MEDS: HYDROCODONE/ACETAMOPHEN 5/325MG TAB PO PRN (23:18)
--- NOTE | 2021-03-04 23:39 | Hospitalist Progress Note ---
Date of Service March 04, 2021 Assessment & Plan (1) Elevated troponin: (2) Chest pain: (3) HTN (hypertension): (4) Hypothyroidism: (5) Dyslipidemia: (6) Depression: (7) DDD (degenerative disc disease): Plan: Present on admission with chest pain associated with nausea that radiated to left upper extremity Troponin on admission 3.18 then 4.24, now trending down to 3.60 EKG showed no significant ischemia Currently on IV heparin drip that was started on admission Echo showed possible inferior hypokinesis but preserved LV function with ejection fraction 50 to 55% Cardiology on board Case discussed with cardiology that recommend to continue heparin drip for 48 hours Plan for cardiac cath tomorrow We will continue aspirin 81 mg, metoprolol 25 mg twice daily and Statin (pravastatin was changed to atorvastatin per cardiology) If patient develop any chest discomfort or significant EKG changes will notify cardiology for possible emergent cardiac cath We will continue monitor closely in PCU We will make n.p.o. after midnight HTN: BP is elevated in the ER possible related to hospital setting Continue metoprolol and telmisartan Continue monitor BP HLD: Cholesterol 141, LDL 72, and HDL 52 Pravastatin changed to atorvastatin Hypothyroidism: Continue levothyroxine DVT PPx: Heparin Gtt Code Status: Full Code Disposition We will discharge once medically stable Entry Level Account Executive spoke to daughter (Yumi [phone]) updated about the cardiac cath Admission and Anticipated Discharge Date Admission Date: March 02, 2021 Subjective Patient was seen and examined for follow-up of chest pain and elevated troponin Lying in bed in no acute distress Patient said she did not sleep well last night due to noise coming from her the other pt next to her Denies any chest pain, palpitation, dizziness, shortness of breath. Review of Systems Review of Systems: All systems reviewed & are unremarkable except as noted in Subjective Physical Exam Physical Exam: General- No acute distress Head- atraumatic Eyes- PERRL, EOMI, ENT- oropharynx clear Neck- supple, no JVD Lungs- clear to auscultation Heart- regular rhythm; +murmur Abdomen- normal bowel sounds, soft, nontender Extremities- no calf tenderness Neuro- alert, oriented x 3; PERRL, EOMI; no facial palsy; no dysarthria Skin- warm & dry Results & Data Results & Data ([facility]) Vital Signs (Past 12 Hours) Vital Signs Temp Pulse Pulse Resp BP Pulse Ox 03/04/21 19:04 36.5 C 67 17 142/69 H 98 03/04/21 15:05 36.7 C 65 19 129/78 96 03/04/21 12:45 64 03/04/21 12:03 36.4 C L 65 19 128/79 94
[2021-03-05] MEDS ORDERED: SODIUM CHLORIDE 0.9% 1000ML 1,000 ML IV SCH
[2021-03-05] MEDS ORDERED: CALCIUM CARBONATE 500 MG CHEWABLE TAB PO PRN (02:33)
[2021-03-05 05:08] LABS: Hematocrit (blood only) 35.6 % (37-47); Hemoglobin 11.4 g/dL (12.0-16.0); Mean Corpuscular Hemoglobin 30.6 pg (25-34); Mean Corpuscular Volume 95.7 fL (80-100); Platelet Count 218 K/uL (130-400); RDW Coefficient of Variation 12.5 % (11.5-14.5); RDW Standard Deviation 43.6 fL (36.4-46.3); Red Blood Count 3.72 M/uL (4.2-5.4); White Blood Count 6.79 K/uL (4.8-10.8)
[2021-03-05 05:20] LABS: Partial Thromboplastin Ratio 1.7
[2021-03-05 05:28] LABS: Calcium 8.8 mg/dl (8.5-10.1); Creatinine Clr Calc Pharmacy 47.9 ml/min; Est GFR (African American) 71.4 ml/min; Est GFR (Non-African American) 61.6 ml/min
[2021-03-05] MEDS: LEVOTHYROXINE SODIUM 100 MCG TABLET PO SCH (05:49)
[2021-03-05] MEDS: HEPARIN SODIUM/DEXTROSE 25,000 UNITS/500 ML BAG IV SCH (05:50)
[2021-03-05] MEDS: METOPROLOL TARTRATE 25 MG TAB PO SCH ×2 (08:15→19:59)
[2021-03-05] MEDS: PANTOprazole 40 MG TAB PO SCH (08:15)
[2021-03-05] MEDS: busPIRone 5 MG TAB PO SCH ×2 (08:15→19:58)
[2021-03-05] MEDS: ATORVASTATIN 40 MG TAB PO SCH (08:15)
[2021-03-05] MEDS: buPROPion XL 300 MG TABCR PO SCH (08:15)
[2021-03-05] MEDS: ASPIRIN 81 MG ECTAB PO SCH (08:15)
--- NOTE | 2021-03-05 09:55 | Cardiology Progress Note ---
Date of Service March 05, 2021 Assessment & Plan (1) Non-ST elevation VA (NSTEMI): (2) Chest pain: (3) Dyslipidemia: (4) Hypertension: Plan: Risk, benefits, alternatives to cardiac catheterization discussed. Patient agreeable to proceed with diagnostic procedure and percutaneous intervention if indicated. Her radial pulse is not palpable. There is a faint ulnar pulse in her right upper extremity. We discussed the risk versus benefit of femoral approach. We will plan femoral access for diagnostic procedure. She understands that I will consult Dr. Raman if percutaneous intervention is indicated. Intravenous heparin will be stopped now. Patient is n.p.o. and receive her a.m. medications. Further recommendations pending result of cardiac catheterization. Admission and Anticipated Discharge Date Admission Date: March 02, 2021 Subjective Patient seen and examined at the bedside. Reports episode of chest discomfort overnight. Describes a left sided and central pressure. Symptoms similar to angina on admission however less severe. Currently pain-free. No dysrhythmias on telemetry. Denies orthopnea, PND, or lower extremity edema. Has many questions today regarding details of cardiac catheterization. Request that I contact her daughter after procedure to discuss results. Review of Systems Review of Systems: All systems reviewed & are unremarkable except as noted in HPI & below Physical Exam Constitutional: well developed and well nourished; no acute distress Respiratory: normal respiratory effort; no respiratory distress, no labored breathing and no retractions Auscultation: lungs clear to auscultation bilaterally; no crackles, no rales, no rhonchi and no wheezes Cardiovascular: Rate/Rhythm: regular rate and regular rhythm Heart Sounds: normal S1, normal S2 and + murmur (1/6 systolic murmur heard at the base.) Vessels: femoral pulses present; no JVD, no carotid bruit and + radial pulses abnormal Extremities: no edema Gastrointestinal (Abdomen): Inspection/Auscultation: abdomen normal to inspection and normal bowel sounds; abdomen not distended Percussion/Palpation: abdomen soft; abdomen nontender, no guarding and abdomen not rigid Neurologic: CN's II-XI intact bilaterally and moves all extremities; no focal motor deficits Motor/Sensory: no tremor Psychiatric: A+Ox3, euthymic affect Results & Data ([facility] [place]) Vital Signs (Past 12 Hours) Vital Signs Temp Pulse Pulse Resp BP BP Pulse Ox 03/05/21 08:01 36.5 C 62 16 121/70 97 03/05/21 07:36 62 03/05/21 02:59 36.7 C 64 20 131/75 97 03/05/21 00:29 36.7 C 60 18 132/72 98 03/04/21 22:20 74 (1) Hypertension Hypertension type: unspecified Qualified Code(s): I10 - Essential (primary) hypertension
--- NOTE | 2021-03-05 09:56 | Pre Anesthesia Assessment ---
Date of Service March 05, 2021 Pre Sedation Assessment Vital Signs Temp Pulse Pulse Resp BP BP Pulse Ox 03/06/21 06:54 36.7 C 70 15 116/69 96 03/06/21 03:22 36.7 C 71 15 128/60 98 03/06/21 01:21 74 03/05/21 23:19 37.2 C 72 15 130/73 97 03/05/21 22:00 37 C 75 69 15 120/70 94 03/05/21 20:06 37 C 69 15 120/70 94 03/05/21 19:20 37.2 C 71 18 127/72 93 03/05/21 18:06 37.0 C 71 18 148/80 H 97 03/05/21 16:06 36.9 C 64 18 168/83 H 99 03/05/21 16:01 36.6 C 61 19 147/83 H 98 03/05/21 15:36 36.6 C 61 18 147/79 H 97 03/05/21 15:05 63 18 143/76 H 100 03/05/21 14:36 36.6 C 60 16 142/76 H 95 03/05/21 14:23 61 18 141/66 H 94 03/05/21 13:58 36.5 C 62 18 132/73 98 03/05/21 13:45 59 L 20 149/89 H 92 03/05/21 13:30 60 20 173/102 H 93 Cardiovascular + regular rate and + regular rhythm + S1 normal, + S2 normal and + murmur + femoral pulses present; no JVD and no radial pulses present no edema Respiratory + respiratory effort normal; no respiratory distress and no labored breathing + clear to auscultation bilaterally; no crackles, no rales and no rhonchi Pre-Sedation Airway Assessment Smoking Status: Former smoker Mallampati Class: II ASA: ASA4 NPO Status Date of Last Intake of Fluids: 03/05/21 Date of Last Intake of Solid Food: 03/04/21 Procedure Planning Contraindications for Sedation: none Current Medications Reviewed: Yes Notes The planned sedation has been discussed with the patient. Informed Consent was obtained. I have identified the patient, determined the appropriateness of sedation and have assessed the patient immediately prior to the procedure. All medicine(s) and interventions are by my order.
[2021-03-05] MEDS ORDERED: MIDAZOLAM HCL 1 MG/ML 2ML VIAL ONE (10:50)
[2021-03-05] MEDS ORDERED: fentaNYL citrate 100 MCG/2 ML VIAL ONE (10:51)
[2021-03-05] MEDS ORDERED: methylPREDNISolone 125 MG/2 ML VIAL ONE (11:00)
[2021-03-05] MEDS ORDERED: diphenhydrAMINE 50 MG/ML VIAL ONE ×2 (11:00→12:38)
[2021-03-05] MEDS ORDERED: FLUMAZENIL 0.1 MG/1 ML 10 ML VIAL IV ONE (11:11)
[2021-03-05] MEDS ORDERED: FAMOTIDINE 20MG IV PUSH 20 MG/5 ML SYR IV ONE (11:15)
--- NOTE | 2021-03-05 11:42 | Hospitalist Progress Note ---
Date of Service March 05, 2021 Assessment & Plan (1) Elevated troponin: (2) Chest pain: (3) HTN (hypertension): (4) Hypothyroidism: (5) Dyslipidemia: (6) Depression: (7) DDD (degenerative disc disease): Plan: Present on admission with chest pain associated with nausea that radiated to left upper extremity Troponin on admission 3.18 then 4.24, now trending down to 3.60 EKG showed no significant ischemia Currently on IV heparin drip that was started on admission Echo showed possible inferior hypokinesis but preserved LV function with ejection fraction 50 to 55% Cardiology on board Case discussed with cardiology that recommend to continue heparin drip for 48 hours We will continue aspirin 81 mg, metoprolol 25 mg twice daily and Statin (pravastatin was changed to atorvastatin per cardiology) If patient develop any chest discomfort or significant EKG changes will notify cardiology for possible emergent cardiac cath We will continue monitor closely in PCU Keep NPO for cardiac cath today HTN: BP is elevated in the ER possible related to hospital setting Continue metoprolol and telmisartan Continue monitor BP HLD: Cholesterol 141, LDL 72, and HDL 52 Pravastatin changed to atorvastatin Hypothyroidism: Continue levothyroxine DVT PPx: Heparin Gtt Code Status: Full Code Disposition We will discharge once medically stable Diamond Expert spoke to daughter (Yumi [phone]) updated about the cardiac cath Admission and Anticipated Discharge Date Admission Date: March 02, 2021 Subjective Pt was seen and examined for follow up of chest pain and elevated troponin Lying in bed with no acute distress Pt said that she was able to sleep last night Plan for cardiac cath today Currently denies any chest pain, palpitation, dizziness and SOB Review of Systems Review of Systems: All systems reviewed & are unremarkable except as noted in Subjective Physical Exam Physical Exam: General- No acute distress Head- atraumatic Eyes- PERRL, EOMI, ENT- oropharynx clear Neck- supple, no JVD Lungs- clear to auscultation Heart- regular rhythm; +murmur Abdomen- normal bowel sounds, soft, nontender Extremities- no calf tenderness Neuro- alert, oriented x 3; PERRL, EOMI; no facial palsy; no dysarthria Skin- warm & dry Results & Data Results & Data ([facility]) Vital Signs (Past 12 Hours) Vital Signs Temp Pulse Pulse Resp BP BP Pulse Ox 03/05/21 08:01 36.5 C 62 16 121/70 97 03/05/21 07:36 62 03/05/21 02:59 36.7 C 64 20 131/75 97 03/05/21 00:29 36.7 C 60 18 132/72 98
[2021-03-05] MEDS ORDERED: NITROGLYCERIN/D5W 100MCG/ML 20ML SYR ONE (11:45)
[2021-03-05] MEDS ORDERED: niCARdipine HCL INJ 2.5 MG/ML 10 ML AMP ONE (11:45)
[2021-03-05] MEDS ORDERED: HEPARIN (PORCINE) 1000 UNIT/ML 10 ML (CATH LAB USE ONLY) ONE (11:45)
--- NOTE | 2021-03-05 11:52 | Post Anesthesia Assessment ---
Date of Service March 05, 2021 Post Sedation Assessment Vital Signs Temp Pulse Pulse Resp BP BP Pulse Ox 03/06/21 06:54 36.7 C 70 15 116/69 96 03/06/21 03:22 36.7 C 71 15 128/60 98 03/06/21 01:21 74 03/05/21 23:19 37.2 C 72 15 130/73 97 03/05/21 22:00 37 C 75 69 15 120/70 94 03/05/21 20:06 37 C 69 15 120/70 94 03/05/21 19:20 37.2 C 71 18 127/72 93 03/05/21 18:06 37.0 C 71 18 148/80 H 97 03/05/21 16:06 36.9 C 64 18 168/83 H 99 03/05/21 16:01 36.6 C 61 19 147/83 H 98 03/05/21 15:36 36.6 C 61 18 147/79 H 97 03/05/21 15:05 63 18 143/76 H 100 03/05/21 14:36 36.6 C 60 16 142/76 H 95 03/05/21 14:23 61 18 141/66 H 94 03/05/21 13:58 36.5 C 62 18 132/73 98 03/05/21 13:45 59 L 20 149/89 H 92 03/05/21 13:30 60 20 173/102 H 93 Recovery Score Activity: Moves 4 extremities Respiration: Deep Breath/Cough Circulation: +/-20% PreAnes Value Consciousness: Arouseable (by name) Oxygen Saturation: O2 needed for >90% Discharge Sedation Level of Care: Phase I Post Sedation Plan On clinical assessment, the patient appears to have tolerated the sedation without complications. Patient is recovering as anticipated. Patient will continue to be monitored by nursing and may be discharged when sedation discharge criteria are met per below protocol. Upon Completions of procedure up to 15 minutes continue every 5 minute vital signs and the P.A.R. score; then discharge to a Phase I or Fast Track to Phase II per the following guidelines: * Discharge Patient to appropriate Phase II area if PAR is 8 or greater or return to pre- procedure baseline. The post - procedure orders will be as directed. * If PAR score is less than 8 or not return to pre-procedure baseline then patient will follow Phase I monitoring till PAR is reached for Phase II. The Phase I may be done in procedure room or may call to secure a Phase I area. * If naloxone or flumazenil are used for reversal, hold in Phase I for continued monitoring from when last reversal dose was given for a minimum of 60 minutes or longer pending the nurse and/or physician discretion of patient condition before discharge to Phase II. Please call the Sedation Physician to re-evaluate and complete post-note for discharge to Phase II area. Do NOT discharge from procedure sedation or Phase 1 until post- sedation evaluation note is complete by procedure /sedation MD Sedation Discharge Instructions to be given to the patient at discharge to home.
--- NOTE | 2021-03-05 11:54 | Cardiac Catheterization ---
Cardiac Cath Procedure Full Procedure Date March 05, 2021 Pre-Procedure Diagnosis Pre-Procedure Diagnosis: Non STEMI AUC Score AUC Score: 8 Post-Procedure Diagnosis Post-Procedure Diagnosis: Severe CAD and Elevated Intracardiac Pressures Procedure(s) Performed Procedure(s) Performed: Coronary Angiography and Left Heart Cath Laundry Supervisor Almas Ernandez DO Masking Machine Feeder(s) Business Analyst Consultant POWER SYSTEM ELECTRICAL ENGINEER Estimated Blood Loss Estimated Blood Loss: 5cc Medication(s) Medication(s): Diphenhydramine, Lidocaine 1% and Versed Medication(s): 100mg Solumedrol IV. 0.2mg x 2 Flumazenil Summary of Findings 99% mid RCA 75% mid Lcx Elevated LVEDP Hemodynamics Rest Ao:: 165/69/104 Final Ao: 163/75/108 LV: 161/8/19 Recommendations Recommendations: PCI without planned CABG Specimens Specimens: None Radiation Exposure (mGy) 289 Contrast (mls) 35 Drains Drains: N/A Anesthesia Moderate sedation. Start 1108. End 1138. Sedation monitor: Christian NAVARRO Procedural Complication(s) None I attest to the content of the Intraoperative Record and any orders documented therein. Any exceptions are noted below. ACC Data: Branch Administrator Cardiac Status 80 year old female presented to ER with chest pain and elevated troponin. Echocardiogram demonstrating preserved LV systolic function with inferior and posterior hypokinesis. CAD Presenation: Non STEMI Heart Failure: No Cardiogenic Shock within 24 Hours: No Cardiac Arrest within 24 Hours: No Imaging Studies Past 6 Months: Yes Stress Studies Past 6 Months: No STEMI OR Non-STEMI Symptom Onset Date: 03/03/21 Thrombolytics: No Coronary Anatomy Left Main (% Stenosis): Normal LAD (% Stenosis): Proximal (20% long tubular) D1 (% Stenosis): Normal (1mm vessel) D2 (% Stenosis): Normal (1mm vessel) Circumflex (% Stenosis): Mid (75% early mid, 60% late mid) L PL1 (% Stenosis): Normal L PL2 (% Stenosis): Normal RCA (% Stenosis): Mid (99%) R PDA (% Stenosis): Normal R PL1 (% Stenosis): Normal Ramus (% Stenosis): Proximal (10%) Diagnostic Physicians Name: Almas Ernandez DO Closure Device Recommendations: PCI without planned CABG Intraprocedure Events Significant Disection: No Perforation: No
[2021-03-05] MEDS ORDERED: ONDANSETRON INJ 2 MG/ML 2 ML VIAL ONE (12:28)
[2021-03-05] MEDS ORDERED: CLOPIDOGREL BISULFATE 300 MG TAB ONE (13:19)
--- NOTE | 2021-03-05 14:25 | Post Operative Brief Note ---
Cardiology Brief Post Op Date of Surgery March 05, 2021 Pre & Post Diagnosis Operation Date: 03/05/21 09:30 <No data on this case meets the specified criteria> Procedure PCI to RCA PCI to circumflex Recruitment Director Kobe Raman MD Senior Financial Fco Estimated Blood Loss 15 Findings See Below Successful PCI to mid to distal circumflex with 2.75 x 28 mm Xience drug-eluting stent; postdilated with 3.0 NC Successful PCI to mid RCA with 2.5 x 12 mm Xience drug-eluting stent; postdilated with 3.0 NC Anesthesia Type RN Sedation Complications none Disposition Accompanied Patient To Recovery: No Disposition: PCU Overlapping Procedure I was present for: the critical portions of procedure. I was immediately available: during the entire case. Back up surgeon: was not required during procedure.
--- NOTE | 2021-03-05 17:13 | Cardiac Catheterization ---
ACC Data: Piano Technician Cardiac Status Clinical evaluation leading to the procedure CAD Presenation: Non STEMI Anginal Classification: CCS IV Heart Failure: No Cardiogenic Shock within 24 Hours: No Cardiac Arrest within 24 Hours: No Imaging Studies Past 6 Months: Yes Stress Studies Past 6 Months: No Diagnostic Physicians Name: Kobe Raman MD Status: Elective Closure Device Percutaneous Entry Location: Femoral Closure Device: Angio-Seal Recommendations: PCI without planned CABG PCI Indication: PCI for high risk Non-GERALD Lesion Segment Name: mid RCA Culprit Artery: Yes Stenosis Prior to Rx (%): 99 Chronic Total Occlusion: No IVUS: No Pre-Procedure DON Flow: 3 Previously Treated Lesion: No Lesion Complexity: Non-High/Non-C Lesion Length (mm): 10 Thrombus Present: Yes Bifurcation Lesion: No Guidewire Across Lesion: Stenosis Post-Procedure (%): 0 Post-Procedure DON Flow: 3 Devices(s) Deployed: Yes Yes Lesion #2 Segment Name: Mid circumflex Culprit Artery: No Stenosis Prior to Rx (%): 75 Chronic Total Occlusion: No IVUS: No FFR: No Pre-Procedure DON Flow: 3 Previously Treated Lesion: No Lesion Complexity: Non-High/Non-C Lesion Length (mm): 25 Thrombus Present: No Bifurcation Lesion: No Guidewire Across Lesion: Yes Stenosis Post-Procedure (%): 0 Post-Procedure DON Flow: 3 Devices(s) Deployed: Yes Intraprocedure Events Significant Disection: No Perforation: No Cardiac Cath Procedure Full Procedure Date March 05, 2021 Pre-Procedure Diagnosis Pre-Procedure Diagnosis: Non STEMI AUC Score AUC Score: 8 Post-Procedure Diagnosis Post-Procedure Diagnosis: Severe CAD and Successful PCI Procedure(s) Performed Procedure(s) Performed: Coronary Angiography and Drug Eluting Stent Ssrs Report Developer Kobe Raman MD Automatic Machine Attendant(s) Fco ARREGUIN Estimated Blood Loss Estimated Blood Loss: 15 Medication(s) Medication(s): Diphenhydramine, Heparin, Nicardipine and Nitroglycerin Summary of Findings Indication: NSTEMI Access: 6 Fr right COMPUTER TECHNOLOGY TEACHER Catheters: JR4 guide, EBU 3.5 guide Findings: For full details of patient's coronary angiography please see cath report dictated by Dr. Ernandez. Briefly, patient found to have severe two-vessel disease with 99% mid RCA stenosis and 75% mid circumflex stenosis. Decision to proceed with PCI. -- PCI -- Antithrombotic therapy: Heparin, clopidogrel Procedure: RCA cannulated with JR4 guide Whisper wire passed across mid RCA lesion into distal vessel Mid RCA stented with 2.5 x 12 mm Xience drug-eluting stent Stent post-dilated with 3.0 noncompliant balloon IC vasodilators administered for spasm Post procedure DON 3 flow, stent well expanded with minimal residual stenosis and no apparent cardiac complications. Left main cannulated with EBU 3.5 guide Whisper wire passed across mid circumflex stenosis into distal vessel Mid circumflex dilated with 2.0 balloon Mid to distal circumflex stented with 2.75 x 28 mm Xience drug-eluting stent Stent postdilated with 3.0 NC Post procedure DON 3 flow, stent well expanded with minimal residual stenosis and no apparent cardiac complications. Arterial Closure: Angio-Seal Summary: 1. Successful PCI of mid RCA (culprit lesion) with single drug-eluting stent (2.5 x 12 mm Xience; postdilated with 3.0 NC). 2. Successful PCI of mid to distal circumflex with single drug-eluting stent (2.75 x 28 mm Xience; postdilated with 3.0 NC). Recommendations: To PCU for continued monitoring Loaded with clopidogrel 600 mg in Piano Technician Continue dual-antiplatelet therapy for at least 1 year Consult cardiac Rehab Hemodynamics Rest Ao:: 163/80/110 Final Ao: 195/83/128 LV: 161/19 Recommendations Recommendations: PCI without planned CABG Specimens Specimens: None Radiation Exposure (mGy) 2683 Contrast (mls) 150 Fluids (cc crystalloids) Fluids (cc crystalloids): 350 Anesthesia Moderate sedation. Start 1211. End 1318. Sedation monitor: Christian NAVARRO Procedural Complication(s) None Disposition PCU I attest to the content of the Intraoperative Record and any orders documented therein. Any exceptions are noted below. [facility] Card Cath Procedure Codes Moderate Sedation Procedure 1: Sedation/Anesthesia: 88305 Mod Sedation by the same physician; Ea [id number] Minutes Stenting Procedure 1: Cardiovascular Stent Procedures: 72941 Perc transcatheter placement of intracoronary stent(s), with ang Procedure 2: Cardiovascular Stent Procedures: 57652 Perc transluminal revascularization of acute sub/total occl, aMI PG Care Time/CCT Total # of Minutes Spent Total Time Spent with Patient: Total time spent is greater than 50% in coordination of care (as documented) at patient's floor/unit and/or counseling patient:
[2021-03-05] MEDS: CETIRIZINE HCL 10 MG TABLET PO SCH (19:59)
[2021-03-05] MEDS: TELMISARTAN 40 MG TAB PO SCH (19:59)
[2021-03-06] MEDS: LEVOTHYROXINE SODIUM 100 MCG TABLET PO SCH (05:36)
--- NOTE | 2021-03-06 06:19 | Electrocardiogram Report ---
Test Reason : Blood Pressure : / mmHG Vent. Rate : 062 BPM Atrial Rate : 062 BPM P-R Int : 184 ms QRS Dur : 148 ms QT Int : 464 ms P-R-T Axes : 053 012 -50 degrees QTc Int : 470 ms Poor data quality, interpretation may be adversely affected Normal sinus rhythm Right bundle branch block Cannot rule out Inferior infarct Abnormal ECG When compared with ECG of 04-MAR-2021 10:54, NV interval has decreased QRS duration has increased Confirmed by Zechariah Alfaro ([id number]) on 03/06/2021 6:19:03 AM Referred By: Raghu Armenta Confirmed By:Zechariah Alfaro
[2021-03-06 06:39] LABS: Hematocrit (blood only) 35.4 % (37-47); Hemoglobin 11.5 g/dL (12.0-16.0); Mean Corpuscular Hemoglobin 30.4 pg (25-34); Mean Corpuscular Hgb Conc 32.5 g/dL (32-36); Mean Corpuscular Volume 93.7 fL (80-100); Mean Platelet Volume 11.2 fL (7.4-10.4); Platelet Count 248 K/uL (130-400); RDW Coefficient of Variation 12.6 % (11.5-14.5); Red Blood Count 3.78 M/uL (4.2-5.4)
[2021-03-06 07:03] LABS: BUN Creatinine Ratio 28.1 (10-20); Calcium 8.6 mg/dl (8.5-10.1); Creatinine Clr Calc Pharmacy 44.2 ml/min; Est GFR (African American) 65.2 ml/min; Est GFR (Non-African American) 56.2 ml/min; Potassium 3.9 mmol/L (3.5-5.1)
[2021-03-06] MEDS: METOPROLOL TARTRATE 25 MG TAB PO SCH ×2 (09:09→21:33)
[2021-03-06] MEDS: buPROPion XL 300 MG TABCR PO SCH (09:10)
[2021-03-06] MEDS: PANTOprazole 40 MG TAB PO SCH (09:10)
[2021-03-06] MEDS: ASPIRIN 81 MG ECTAB PO SCH (09:10)
[2021-03-06] MEDS: ATORVASTATIN 40 MG TAB PO SCH (09:10)
[2021-03-06] MEDS: busPIRone 5 MG TAB PO SCH ×2 (09:10→21:33)
[2021-03-06] MEDS: CLOPIDOGREL BISULFATE 75 MG TAB PO SCH (09:11)
--- NOTE | 2021-03-06 11:10 | Cardiology Progress Note ---
Date of Service March 06, 2021 Assessment & Plan (1) Non-ST elevation [place] (NSTEMI): (2) S/P right coronary artery (RCA) stent placement: (3) Presence of drug coated stent in left circumflex coronary artery: (4) Elevated white blood cell count, unspecified: (5) Dyslipidemia: (6) Hypertension: Plan: Cardiac catheterization performed 03/06/2021 without complication. Coronary angiography revealing critical RCA stenosis and severe proximal left circumflex stenosis. Drug-eluting stent implanted to the right coronary artery and left circumflex without complication. Recommend continuing dual antiplatelet therapy for a minimum of 1 year post myocardial infarction/stent placement. Post cardiac catheterization activity restrictions listed below. Continue metoprolol, telmisartan, and atorvastatin as previously ordered. Elevated white blood cell count noted per a.m. labs. Recommend urinalysis with reflex culture and sensitivity if indicated. Patient is afebrile without symptoms at this time. Outpatient cardiology follow-up in 2-4 weeks. ACTIVITY RECOMMENDATIONS: It is common to feel weak and fatigue for a few days. * Do not drive or operate any motorized equipment for the next three days. * Limit stair usage (2 or 3 trips a day only) for the next three days. * Do not lift anything heavier than 10 pounds for the next three days. * Do not engage in vigorous exercise or any sports for the next five days. * You may shower the day after your procedure, but do not immerse the area for three days. Cleanse the site gently with soap and water. SPECIAL CARE INSTRUCTIONS: * You may replace the pressure dressing or band-aid the morning after the procedure. * After your procedure, it is normal to have a small bruise or small lump at the site. Examine your site daily for any change in the bruise or lump, redness, swelling, drainage or numbness. Notify your doctor if any change. BLEEDING: * If there is a small amount of bleeding at the site, lie down and apply firm pressure with a clean cloth for ten minutes. When the bleeding stops, lie quietly keeping the procedure limb straight for six hours. Notify your doctor as soon as possible. * If the bleeding does not stop after ten minutes or if there is a large amount of bleeding or spurting, call 911 immediately. Continue to lie down and hold firm pressure until help arrives. SKIN IRRITATION: * You may experience some redness and/or swelling in the area where radiation was administered. If any skin irritation occurs, please contact your family physician. Admission and Anticipated Discharge Date Admission Date: March 02, 2021 Subjective Patient seen examined the bedside. Feeling well this morning. Denies any chest pain or shortness of breath. Telemetry reveals sinus rhythm. Right groin with minimal ecchymosis. No hematoma. Resting comfortably. No orthopnea or PND. Tolerating medications listed below. Elevated white blood cell count noted on a.m. labs Review of Systems Review of Systems: All systems reviewed & are unremarkable except as noted in Subjective Physical Exam Constitutional: well developed and well nourished; no acute distress ENMT: Mallampati Class: II Respiratory: normal respiratory effort; no respiratory distress, no labored breathing and no retractions Auscultation: lungs clear to auscultation bilaterally; no crackles, no rales, no rhonchi and no wheezes Cardiovascular: Rate/Rhythm: regular rate and regular rhythm Heart Sounds: normal S1, normal S2 and + murmur Vessels: femoral pulses present; no JVD, no carotid bruit and + radial pulses abnormal Extremities: no edema Gastrointestinal (Abdomen): Inspection/Auscultation: abdomen normal to inspection and normal bowel sounds; abdomen not distended Percussion/Palpation: abdomen soft; abdomen nontender, no guarding and abdomen not rigid Neurologic: CN's II-XI intact bilaterally and moves all extremities; no focal motor deficits Motor/Sensory: no tremor Psychiatric: A+Ox3, euthymic affect Results & Data ([facility]) Vital Signs (Past 12 Hours) Vital Signs Temp Pulse Pulse Resp BP BP Pulse Ox 03/06/21 06:54 36.7 C 70 15 116/69 96 03/06/21 03:22 36.7 C 71 15 128/60 98 03/06/21 01:21 74 03/05/21 23:19 37.2 C 72 15 130/73 97 (1) Hypertension Hypertension type: unspecified Qualified Code(s): I10 - Essential (primary) hypertension
[2021-03-06] MEDS: FLUTICASONE PROPIONATE NA SPR 16 GM BTL SCH (11:38)
[2021-03-06 11:46] LABS: Appearance Urine Clear (Clear); Bacteria Urine Automated Negative (Negative); Bilirubin Urine Negative (Negative); Blood Urine Negative (Negative); Color Urine Yellow; Glucose Urine UA Negative (Negative); Ketones Urine Negative (Negative); Leukocyte Esterase Urine 2+ (Negative); Nitrite Urine Negative (Negative); Protein Urine Negative (Negative); Specific Gravity Urine 1.035 (1.000-1.030); Urobilinogen Urine Negative (Negative); WBC Urine Automated >30 /hpf (0-5)
--- NOTE | 2021-03-06 15:00 | Hospitalist Progress Note ---
Date of Service March 06, 2021 Assessment & Plan (1) Elevated troponin: Plan: Non-ST elevation [place] Management as below (2) Chest pain: Plan: Presented with chest pain-resolved (3) HTN (hypertension): (4) Hypothyroidism: (5) Dyslipidemia: (6) Depression: (7) DDD (degenerative disc disease): Plan: Present on admission with chest pain associated with nausea that radiated to left upper extremity Troponin on admission 3.18 then 4.24, now trending down to 3.60 EKG showed no significant ischemia Started on IV heparin drip and later on discontinued Echo showed possible inferior hypokinesis but preserved LV function with ejection fraction 50 to 55% Cardiology on board-appreciate input and recommendation We will continue aspirin 81 mg, metoprolol 25 mg twice daily and Statin (pravastatin was changed to atorvastatin per cardiology) Status post cardiac cath and placement of cardiac stents as below 1. Successful PCI of mid RCA (culprit lesion) with single drug-eluting stent (2.5 x 12 mm Xience; postdilated with 3.0 NC). 2. Successful PCI of mid to distal circumflex with single drug-eluting stent (2.75 x 28 mm Xience; postdilated with 3.0 NC). Will need dual antiplatelet therapy for 1 year Possible UTI Await urine culture and sensitivity HTN: BP is elevated in the ER possible related to hospital setting Continue metoprolol and telmisartan Continue monitor BP-remains stable HLD: Cholesterol 141, LDL 72, and HDL 52 Pravastatin changed to atorvastatin Hypothyroidism: Continue levothyroxine DVT PPx: Heparin Gtt-stopped On dual antiplatelet therapy with aspirin and Plavix Code Status: Full Code Disposition We will discharge once medically stable Rn Residential spoke to daughter (Yumi [phone]) updated about the cardiac cath Likely discharge tomorrow Admission and Anticipated Discharge Date Admission Date: March 02, 2021 Subjective 03/06/2021 The patient was seen and examined in telemetry unit She complains to have headache and sneezing secondary to runny nose Denies any chest pain and/or palpitation Denies any urinary symptoms Review of Systems Review of Systems: All systems reviewed and are unremarkable except as noted below Physical Exam Physical Exam: Lying in bed comfortably Constitutional: well developed and well nourished; not ill appearing Eyes: PERRL, conjunctivae normal, anicteric sclerae ENMT: external ear and nose normal, oropharynx normal Neck: trachea midline, no thyromegaly Respiratory: no respiratory distress Auscultation: lungs clear to auscultation bilaterally Cardiovascular: Rate/Rhythm: regular rate and regular rhythm; not tachycardic Heart Sounds: normal S1 and normal S2; no murmur Extremities: no edema Gastrointestinal (Abdomen): Inspection/Auscultation: normal bowel sounds; abdomen not distended Percussion/Palpation: abdomen soft; abdomen nontender Musculoskeletal: No acute arthritis in any joint Neurologic: Alert, awake and oriented x3. No focal sensory or motor deficit appreciated Lymphatic: no cervical or axillary lymphadenopathy Results & Data Results & Data ([facility]) Vital Signs (Past 12 Hours) Vital Signs Temp Pulse Resp BP Pulse Ox 03/06/21 12:01 36.8 C 71 15 146/82 H 99 03/06/21 06:54 36.7 C 70 15 116/69 96 03/06/21 03:22 36.7 C 71 15 128/60 98 Laboratory Results Short CBC 03/06/21 Range/Units 05:48 WBC 15.30 H (4.8-10.8) K/uL Hgb 11.5 L (12.0-16.0) g/dL Hct 35.4 L (37-47) % Plt Count 248 (130-400) K/uL BMP 03/06/21 05:48 Sodium 140 Potassium 3.9 Chloride 111 H Carbon Dioxide 22 BUN 27 H Creatinine 0.96 Glucose 118 H Calcium 8.6 Urine 03/06/21 Range/Units 10:06 Urine Color Yellow Urine Appearance Clear (Clear) Urine pH 5.0 (4.5-7.5) Ur Specific [place] 1.035 H (1.000-1.030) Urine Protein Negative (Negative) Urine Glucose (UA) Negative (Negative) Medications Administered Current Inpatient Medications Hydrocodone Bitart/Acetaminophen (Hydrocodone/Acetamophen 5/325mg Tab) 1 tab PO DAILY PRN PRN Reason: Pain, Moderate Stop: 03/16/21 21:25 Last Admin: 03/04/21 23:18 Dose: 1 tab Documented by: Albuterol (Albuterol Hfa 8 Gm Inhaler) 2 puffs INH Q4 PRN PRN Reason: Wheezing Stop: 04/01/21 21:25 Aspirin (Aspirin 81 Mg Ectab) [facility] Stop: 04/02/21 08:59 Last Admin: 03/06/21 09:10 Dose: 81 mg Documented by: Atorvastatin Calcium (Atorvastatin 40 Mg Tab) 40 mg PO QAM [facility] Stop: 04/03/21 08:59 Last Admin: 03/06/21 09:10 Dose: 40 mg Documented by: Bupropion HCl (Bupropion Xl 300 Mg Tabcr) 300 [facility] Stop: 04/02/21 08:59 Last Admin: 03/06/21 09:10 Dose: 300 mg Documented by: Buspirone HCl (Buspirone 5 Mg Tab) 10 mg PO BID [facility] Stop: 04/01/21 21:25 Last Admin: 03/06/21 09:10 Dose: 10 mg Documented by: Calcium Carbonate (Calcium Carbonate 500 Mg Chewable Tab) 500 mg PO Q6H PRN PRN Reason: Heartburn Stop: 04/04/21 02:32 Last Admin: 03/05/21 02:53 Dose: 500 mg Documented by: Cetirizine HCl (Cetirizine Hcl 10 Mg Tablet) 10 mg PO [facility] Stop: 04/01/21 21:25 Last Admin: 03/05/21 19:59 Dose: 10 mg Documented by: Clopidogrel Bisulfate (Clopidogrel Bisulfate 75 Mg Tab) [facility] Stop: 04/05/21 08:59 Last Admin: 03/06/21 09:11 Dose: 75 mg Documented by: Fluticasone Propionate (Fluticasone Propionate Na Spr 16 Gm Btl) 2 sprays NA DAILY [facility] Stop: 04/05/21 10:59 Last Admin: 03/06/21 11:38 Dose: 2 sprays Documented by: Levothyroxine Sodium (Levothyroxine Sodium 100 Mcg Tablet) 100 mcg PO DAILYBB [facility] Stop: 04/02/21 06:29 Last Admin: 03/06/21 05:36 Dose: 100 mcg Documented by: Metoprolol Tartrate (Metoprolol Tartrate 25 Mg Tab) 25 mg PO BID [facility] Stop: 04/02/21 20:59 Last Admin: 03/06/21 09:09 Dose: 25 mg Documented by: Pantoprazole Sodium (Pantoprazole 40 Mg Tab) 40 mg PO DAILY [facility] Stop: 04/02/21 08:59 Last Admin: 03/06/21 09:10 Dose: 40 mg Documented by: Telmisartan (Telmisartan 40 Mg Tab) 80 mg PO [facility] Stop: 04/01/21 21:25 Last Admin: 03/05/21 19:59 Dose: 80 mg Documented by:
[2021-03-06] MEDS: TELMISARTAN 40 MG TAB PO SCH (21:33)
[2021-03-06] MEDS: CETIRIZINE HCL 10 MG TABLET PO SCH (21:34)
[2021-03-07] MEDS: LEVOTHYROXINE SODIUM 100 MCG TABLET PO SCH (05:45)
[2021-03-07] MEDS: METOPROLOL TARTRATE 25 MG TAB PO SCH (08:01)
[2021-03-07] MEDS: ATORVASTATIN 40 MG TAB PO SCH (08:01)
[2021-03-07] MEDS: buPROPion XL 300 MG TABCR PO SCH (08:01)
[2021-03-07] MEDS: busPIRone 5 MG TAB PO SCH (08:01)
[2021-03-07] MEDS: CLOPIDOGREL BISULFATE 75 MG TAB PO SCH (08:01)
[2021-03-07] MEDS: PANTOprazole 40 MG TAB PO SCH (08:01)
[2021-03-07] MEDS: ASPIRIN 81 MG ECTAB PO SCH (08:01)
[2021-03-07] MEDS: FLUTICASONE PROPIONATE NA SPR 16 GM BTL SCH (08:02)
[2021-03-07 09:09] LABS: Basophils # (auto) 0.02 K/uL (0-0.2); Basophils % (auto) 0.2 %; Eosinophils # (auto) 0.19 K/uL (0-0.5); Hematocrit (blood only) 31.7 % (37-47); Hemoglobin 10.1 g/dL (12.0-16.0); Immature Granulocytes # (auto) 0.01 K/uL (0.00-0.02); Immature Granulocytes % (auto) 0.1 %; Mean Corpuscular Hemoglobin 30.5 pg (25-34); Mean Corpuscular Hgb Conc 31.9 g/dL (32-36); Mean Corpuscular Volume 95.8 fL (80-100); Mean Platelet Volume 10.6 fL (7.4-10.4); Monocytes # (auto) 0.62 K/uL (0.11-0.59); Monocytes % (auto) 6.5 %; Neutrophils # (auto) 6.35 K/uL (1.4-6.5); Neutrophils % (auto) 66.2 %; Platelet Count 189 K/uL (130-400); RDW Coefficient of Variation 13.1 % (11.5-14.5); RDW Standard Deviation 45.7 fL (36.4-46.3); Red Blood Count 3.31 M/uL (4.2-5.4); White Blood Count 9.59 K/uL (4.8-10.8)
--- NOTE | 2021-03-07 09:26 | Hospitalist Progress Note ---
Date of Service March 07, 2021 Assessment & Plan (1) Elevated troponin: Plan: Non-ST elevation [place] Management as below (2) Chest pain: Plan: Presented with chest pain-resolved (3) HTN (hypertension): (4) Hypothyroidism: (5) Dyslipidemia: (6) Depression: (7) DDD (degenerative disc disease): Plan: Present on admission with chest pain associated with nausea that radiated to left upper extremity Troponin on admission 3.18 then 4.24, now trending down to 3.60 EKG showed no significant ischemia Started on IV heparin drip and later on discontinued Echo showed possible inferior hypokinesis but preserved LV function with ejection fraction 50 to 55% Cardiology on board-appreciate input and recommendation We will continue aspirin 81 mg, metoprolol 25 mg twice daily and Statin (pravastatin was changed to atorvastatin per cardiology) Status post cardiac cath and placement of cardiac stents as below 1. Successful PCI of mid RCA (culprit lesion) with single drug-eluting stent (2.5 x 12 mm Xience; postdilated with 3.0 NC). 2. Successful PCI of mid to distal circumflex with single drug-eluting stent (2.75 x 28 mm Xience; postdilated with 3.0 NC). Will need dual antiplatelet therapy for 1 year Remains stable and will be discharged home this afternoon Possible UTI Await urine culture and sensitivity Denies any urinary symptoms of frequency, dysuria, fever and or chills White count has gone down from 15 to normal Doubt any infection in the urine Will discharge home this morning HTN: BP is elevated in the ER possible related to hospital setting Continue metoprolol and telmisartan Continue monitor BP-remains stable HLD: Cholesterol 141, LDL 72, and HDL 52 Pravastatin changed to atorvastatin Hypothyroidism: Continue levothyroxine DVT PPx: Heparin Gtt-stopped On dual antiplatelet therapy with aspirin and Plavix Code Status: Full Code Disposition We will discharge once medically stable [place] [employer] spoke to daughter (Yumi [phone]) updated about the cardiac cath She will be discharged home this morning Admission and Anticipated Discharge Date Admission Date: March 02, 2021 Subjective 03/06/2021 The patient was seen and examined in telemetry unit She complains to have headache and sneezing secondary to runny nose Denies any chest pain and/or palpitation Denies any urinary symptoms 03/07/2021 The patient was seen and examined in telemetry unit She denies any symptoms of chest pain and/or palpitation Denies any problem with voiding, no frequency no dysuria and no fever and no chills She requested discharge early this morning so that she can have scheduled mammogram at 1130 Review of Systems Review of Systems: All systems reviewed and are unremarkable except as noted below Physical Exam Physical Exam: Lying in bed comfortably Constitutional: well developed and well nourished; not ill appearing Eyes: PERRL, conjunctivae normal, anicteric sclerae ENMT: external ear and nose normal, oropharynx normal Neck: trachea midline, no thyromegaly Respiratory: no respiratory distress Auscultation: lungs clear to auscultation bilaterally Cardiovascular: Rate/Rhythm: regular rate and regular rhythm; not tachycardic Heart Sounds: normal S1 and normal S2; no murmur Extremities: no edema Gastrointestinal (Abdomen): Inspection/Auscultation: normal bowel sounds; abdomen not distended Percussion/Palpation: abdomen soft; abdomen nontender Musculoskeletal: No acute arthritis in any joint Neurologic: Alert, awake and oriented x3. No focal sensory or no motor deficit appreciated Lymphatic: no cervical or axillary lymphadenopathy Results & Data Results & Data ([facility]) Vital Signs (Past 12 Hours) Vital Signs Temp Pulse Pulse Resp BP BP Pulse Ox 03/07/21 08:00 36.5 C 68 18 118/65 97 03/07/21 03:10 36.8 C 69 16 107/62 98 03/06/21 23:43 36.6 C 65 20 132/79 99 03/06/21 22:56 65 Laboratory Results Short CBC 03/07/21 Range/Units 08:53 WBC 9.59 (4.8-10.8) K/uL Hgb 10.1 L (12.0-16.0) g/dL Hct 31.7 L (37-47) % Plt Count 189 (130-400) K/uL Urine 03/06/21 Range/Units 10:06 Urine Color Yellow Urine Appearance Clear (Clear) Urine pH 5.0 (4.5-7.5) Ur Specific [place] 1.035 H (1.000-1.030) Urine Protein Negative (Negative) Urine Glucose (UA) Negative (Negative) Medications Administered Current Inpatient Medications Hydrocodone Bitart/Acetaminophen (Hydrocodone/Acetamophen 5/325mg Tab) 1 tab PO DAILY PRN PRN Reason: Pain, Moderate Stop: 03/16/21 21:25 Last Admin: 03/04/21 23:18 Dose: 1 tab Documented by: Albuterol (Albuterol Hfa 8 Gm Inhaler) 2 puffs INH Q4 PRN PRN Reason: Wheezing Stop: 04/01/21 21:25 Aspirin (Aspirin 81 Mg Ectab) 81 mg PO [facility] Stop: 04/02/21 08:59 Last Admin: 03/07/21 08:01 Dose: 81 mg Documented by: Atorvastatin Calcium (Atorvastatin 40 Mg Tab) 40 mg PO [facility] Stop: 04/03/21 08:59 Last Admin: 03/07/21 08:01 Dose: 40 mg Documented by: Bupropion HCl (Bupropion Xl 300 Mg Tabcr) 300 mg PO [facility] Stop: 04/02/21 08:59 Last Admin: 03/07/21 08:01 Dose: 300 mg Documented by: Buspirone HCl (Buspirone 5 Mg Tab) 10 mg PO BID [facility] Stop: 04/01/21 21:25 Last Admin: 03/07/21 08:01 Dose: 10 mg Documented by: Calcium Carbonate (Calcium Carbonate 500 Mg Chewable Tab) 500 mg PO Q6H PRN PRN Reason: Heartburn Stop: 04/04/21 02:32 Last Admin: 03/05/21 02:53 Dose: 500 mg Documented by: Cetirizine HCl (Cetirizine Hcl 10 Mg Tablet) 10 mg PO [facility] Stop: 04/01/21 21:25 Last Admin: 03/06/21 21:34 Dose: 10 mg Documented by: Clopidogrel Bisulfate (Clopidogrel Bisulfate 75 Mg Tab) [facility] Stop: 04/05/21 08:59 Last Admin: 03/07/21 08:01 Dose: 75 mg Documented by: Fluticasone Propionate (Fluticasone Propionate Na Spr 16 Gm Btl) 2 sprays NA DAILY [facility] Stop: 04/05/21 10:59 Last Admin: 03/07/21 08:02 Dose: 2 sprays Documented by: Levothyroxine Sodium (Levothyroxine Sodium 100 Mcg Tablet) [facility]: 04/02/21 06:29 Last Admin: 03/07/21 05:45 Dose: 100 mcg Documented by: Metoprolol Tartrate (Metoprolol Tartrate 25 Mg Tab) 25 mg PO BID [facility] Stop: 04/02/21 20:59 Last Admin: 03/07/21 08:01 Dose: 25 mg Documented by: Pantoprazole Sodium (Pantoprazole 40 Mg Tab) 40 mg PO DAILY [facility] Stop: 04/02/21 08:59 Last Admin: 03/07/21 08:01 Dose: 40 mg Documented by: Telmisartan (Telmisartan 40 Mg Tab) 80 mg PO HS [facility] Stop: 04/01/21 21:25 Last Admin: 03/06/21 21:33 Dose: 80 mg Documented by:
[2021-03-07 09:41] LABS: BUN Creatinine Ratio 29.9 (10-20); Creatinine Clr Calc Pharmacy 48.8 ml/min; Est GFR (African American) 73.4 ml/min; Est GFR (Non-African American) 63.4 ml/min; Potassium 3.6 mmol/L (3.5-5.1)
--- NOTE | 2021-03-07 10:27 | Cardiology Progress Note ---
Date of Service March 07, 2021 Assessment & Plan (1) Non-ST elevation PR (NSTEMI): (2) S/P right coronary artery (RCA) stent placement: (3) Presence of drug coated stent in left circumflex coronary artery: (4) Dyslipidemia: (5) Hypertension: Plan: Continue dual antiplatelet therapy for a minimum of 1 year post myocardial infarction/stent placement. Post cardiac catheterization activity restrictions listed below. Continue metoprolol, telmisartan, and atorvastatin as previously ordered. Urinalysis suggest possible urinary tract infection. Await results of urine culture. White blood cell count within normal limits today. Outpatient cardiology follow-up in 2-4 weeks. ACTIVITY RECOMMENDATIONS: It is common to feel weak and fatigue for a few days. * Do not drive or operate any motorized equipment for the next three days. * Limit stair usage (2 or 3 trips a day only) for the next three days. * Do not lift anything heavier than 10 pounds for the next three days. * Do not engage in vigorous exercise or any sports for the next five days. * You may shower the day after your procedure, but do not immerse the area for three days. Cleanse the site gently with soap and water. SPECIAL CARE INSTRUCTIONS: * You may replace the pressure dressing or band-aid the morning after the procedure. * After your procedure, it is normal to have a small bruise or small lump at the site. Examine your site daily for any change in the bruise or lump, redness, swelling, drainage or numbness. Notify your doctor if any change. BLEEDING: * If there is a small amount of bleeding at the site, lie down and apply firm pressure with a clean cloth for ten minutes. When the bleeding stops, lie quietly keeping the procedure limb straight for six hours. Notify your doctor as soon as possible. * If the bleeding does not stop after ten minutes or if there is a large amount of bleeding or spurting, call 911 immediately. Continue to lie down and hold firm pressure until help arrives. SKIN IRRITATION: * You may experience some redness and/or swelling in the area where radiation was administered. If any skin irritation occurs, please contact your family physician. Admission and Anticipated Discharge Date Admission Date: March 02, 2021 Subjective Patient seen and examined the bedside. Feeling well from a cardiovascular perspective. Denies chest pain or shortness of breath. Mild right groin ecchymosis unchanged. No hematoma. Requesting discharge. Telemetry reveals sinus rhythm. No sustained dysrhythmia. Urine culture pending at this time. White blood cell count trending down to normal today. Review of Systems Review of Systems: All systems reviewed & are unremarkable except as noted in Subjective Physical Exam Constitutional: well developed and well nourished; no acute distress ENMT: Mallampati Class: II Respiratory: normal respiratory effort; no respiratory distress, no labored breathing and no retractions Auscultation: lungs clear to auscultation bilaterally; no crackles, no rales, no rhonchi and no wheezes Cardiovascular: Rate/Rhythm: regular rate and regular rhythm Heart Sounds: normal S1, normal S2 and + murmur Vessels: femoral pulses present; no JVD, no carotid bruit and + radial pulses abnormal Extremities: no edema Gastrointestinal (Abdomen): Inspection/Auscultation: abdomen normal to inspection and normal bowel sounds; abdomen not distended Percussion/Palpation: abdomen soft; abdomen nontender, no guarding and abdomen not rigid Neurologic: CN's II-XI intact bilaterally and moves all extremities; no focal motor deficits Motor/Sensory: no tremor Psychiatric: A+Ox3, euthymic affect Results & Data ([facility]) Vital Signs (Past 12 Hours) Vital Signs Temp Pulse Pulse Resp BP BP Pulse Ox 03/07/21 10:11 36.5 C 68 18 118/65 107/62 97 03/07/21 08:00 36.5 C 68 18 118/65 97 03/07/21 03:10 36.8 C 69 16 107/62 98 03/06/21 23:43 36.6 C 65 20 132/79 99 03/06/21 22:56 65 (1) Hypertension Hypertension type: unspecified Qualified Code(s): I10 - Essential (primary) hypertension
--- NOTE | 2021-03-08 08:16 | Discharge Summary ---
Date of Service March 08, 2021 Admission HPI Per Admitting Provider Pt is a 80 y/o F with hx of HLD, Hypothyroidism, HTN, CKD III, BCC, DDD, AMANDA, depression, hypothyroidism, DDD came to the ER with 3 day hx of substernal chest pain, L scapula pain, L arm pain and nausea. Per pt her chest pain slightly worsened with deep breathing. Denied any associated SOB, diaphoresis, dizziness, vomiting, abd pain or syncope. No change in chest pain with exertion. Symptoms were worse yesterday night and resolved around noon on the day of admission. At bedside: she denied any acute symptoms. -Denied any hx of recent GI bleed. Cardiac stress test (2019): The Dobutamine stress echo is negative for inducible ischemia. The qualitative LV ejection fraction is 55-59% (normal). Admission Exam Per Admitting Provider Physical Exam: General:.NAD, well developed, well nourished, average body habitus HEENT:.Normocephalic and atraumatic, Normal Conjunctiva, EOMI, Sclera is non- icteric Lungs:.No signs of respiratory distress, CTA, no wheezing or crackles Heart:.Normal S1, S2, no murmur Abdominal:.ND, Soft, NT MSK:.trace pitting edema of the distal b/l LE,No deformities of UE and LE Skin:.no rash or open wound Psych:.AAOx3, normal affect Principal Diagnosis Non-ST elevation [place], status post cardiac cath and placement of 2 stents, hypertension Discharge Exam Lying in bed comfortably Constitutional well developed and well nourished; not ill appearing Eyes PERRL, conjunctivae normal, anicteric sclerae ENMT external ear and nose normal, oropharynx normal Neck trachea midline, no thyromegaly Respiratory no respiratory distress Auscultation: lungs clear to auscultation bilaterally Cardiovascular Rate/Rhythm: regular rate and regular rhythm; not tachycardic Heart Sounds: normal S1 and normal S2; no murmur Extremities: no edema Gastrointestinal (Abdomen) Inspection/Auscultation: normal bowel sounds; abdomen not distended Percussion/Palpation: abdomen soft; abdomen nontender Lymphatic no cervical or axillary lymphadenopathy Discharge Data Allergies Allergy/AdvReac Type Severity Reaction Status Date / Time shellfish derived Allergy Severe ANAPHYLAXIS Verified 03/05/21 09:59 mold Allergy Intermediate SHORTNESS Verified 03/05/21 09:59 OF BREATH morphine Allergy Unknown ? Verified 03/02/21 18:41 Consultations 03/02/21 18:59 ED Decision to Admit Stat 03/02/21 21:26 Consult Cardiology Routine 03/05/21 14:22 Consult Cardiac Rehabilitation Routine Procedures Performed Operation Date: 03/05/21 09:30 Actual Procedures p Drug Eluting Stent SGl Vessel - Don Raman MD s Cath, Left with Cors and Vent - Almas Ernandez DO s Cineradiography w/Routine Exam - Almas Ernandez DO Ordered Studies 03/05/21 07:02 CL Cath Imgs for PACS use only Routine Hospital Course (1) Elevated troponin: Non-ST elevation WA Management as below (2) Chest pain: Presented with chest pain-resolved (3) HTN (hypertension): (4) Hypothyroidism: (5) Dyslipidemia: (6) Depression: (7) DDD (degenerative disc disease): Present on admission with chest pain associated with nausea that radiated to left upper extremity Troponin on admission 3.18 then 4.24, now trending down to 3.60 EKG showed no significant ischemia Started on IV heparin drip and later on discontinued Echo showed possible inferior hypokinesis but preserved LV function with ejection fraction 50 to 55% Cardiology on board-appreciate input and recommendation We will continue aspirin 81 mg, metoprolol 25 mg twice daily and Statin (pravastatin was changed to atorvastatin per cardiology) Status post cardiac cath and placement of cardiac stents as below 1. Successful PCI of mid RCA (culprit lesion) with single drug-eluting stent (2.5 x 12 mm Xience; postdilated with 3.0 NC). 2. Successful PCI of mid to distal circumflex with single drug-eluting stent ( 2.75 x 28 mm Xience; postdilated with 3.0 NC). Will need dual antiplatelet therapy for 1 year Remains stable and will be discharged home this afternoon Possible UTI Await urine culture and sensitivity Denies any urinary symptoms of frequency, dysuria, fever and or chills White count has gone down from 15 to normal Doubt any infection in the urine Will discharge home this morning HTN: BP is elevated in the ER possible related to hospital setting Continue metoprolol and telmisartan Continue monitor BP-remains stable HLD: Cholesterol 141, LDL 72, and HDL 52 Pravastatin changed to atorvastatin Hypothyroidism: Continue levothyroxine DVT PPx: Heparin Gtt-stopped On dual antiplatelet therapy with aspirin and Plavix Code Status: Full Code Disposition We will discharge once medically stable [employer] spoke to daughter (Yumi [phone]) updated about the cardiac cath She will be discharged home this morning Total Time Total Time Spent Total Time Spent (In Minutes): 35 minutes Discharge Plan Discharge Items Patient Disposition: Home - Self-Care Reason For Visit: CHEST PAIN Discharge Diagnosis: Non-ST elevation WA, status post cardiac cath and placement of 2 stents, hypertension Condition on Discharge: Fair Activity: Resume your previous activity Non-emergency contact: Primary Care Provider Call non-emergency contact if: you have any medication questions and your symptoms worsen Follow-up/Referrals: Raghu Armenta, [Primary Care Provider] - (Date & Time 03/13/2021 11:00 AM Provider Ajit Cabrera III, MD Department [facility] ) Diet: Heart Healthy and Low Sodium (2gm) Addtl Attending Provider Instructions: Please take precautions to avoid fall Please take your medications as advised Aspirin and Plavix should be continued for 1 year [facility] cardiology will make an appointment for follow-up Addtl Packing Room Supervisor Provider Instructions: ACTIVITY RECOMMENDATIONS: It is common to feel weak and fatigue for a few days. * Do not drive or operate any motorized equipment for the next three days. * Limit stair usage (2 or 3 trips a day only) for the next three days. * Do not lift anything heavier than 10 pounds for the next three days. * Do not engage in vigorous exercise or any sports for the next five days. * You may shower the day after your procedure, butdo not immerse the area for three days. Cleanse the site gently with soap and water. SPECIAL CARE INSTRUCTIONS: * You may replace the pressure dressing or band-aid the morning after the procedure. * After your procedure, it is normal to have a small bruise or small lump at the site.Examine your site dailyfor any change in the bruise or lump, redness, swelling, drainage or numbness. Notify your doctor if any change. BLEEDING: * If there is a small amount of bleeding at the site, lie down and apply firm pressure with a clean cloth for ten minutes. When the bleeding stops, lie quietly keeping the procedure limb straight for six hours. Notify your doctor as soon as possible. *If the bleeding does not stop after ten minutes or if there is a large amount of bleeding or spurting, call 911 immediately.Continue to lie down and hold firm pressure until help arrives. SKIN IRRITATION: * You may experience some redness and/or swelling in the area where radiation was administered. If any skin irritation occurs, please contact your family physician. Pending Studies at Discharge: No Stand-Alone Forms: My [facility], Smoking Cessation Medications and DC Order Prescriptions: New atorvastatin 40 mg Tablet 40 mg PO QAM 30 Days Qty: 30 RF: 0 aspirin 81 mg Tablet,Delayed Release (Dr/Ec) 81 mg PO QAM 30 Days Qty: 30 RF: 0 metoprolol tartrate 25 mg Tablet 25 mg PO BID 30 Days Qty: 60 RF: 0 pantoprazole 40 mg Tablet,Delayed Release (Dr/Ec) 40 mg PO DAILY 30 Days Qty: 30 RF: 0 Continued hydrocodone-acetaminophen 5-325 mg tablet 1 tab PO DAILY PRN (Reason: Pain, Moderate) RF: 0 cetirizine 10 mg tablet 10 mg PO HS RF: 0 aspirin [Adult Aspirin Regimen] 81 mg tablet,delayed release (DR/EC) 81 mg PO DAILY RF: 0 bupropion HCl 300 mg tablet extended release 24 hr 300 mg PO QAM RF: 0 omeprazole 20 mg capsule,delayed release(DR/EC) 20 mg PO QAM RF: 0 One-A-Day Maximum Formula Tablet 1 tab PO QAM RF: 0 [place]-3 350 mg-235 mg- 90 mg-597 mg Capsule,Delayed Release(Dr/Ec) 1 cap PO QAM RF: 0 levothyroxine [Synthroid] 100 mcg tablet 100 mcg PO DAILYBB RF: 0 buspirone 10 mg tablet 10 mg PO BID RF: 0 albuterol sulfate 90 mcg/actuation HFA aerosol inhaler 2 puff INHALATION Q4 PRN (Reason: Wheezing) RF: 0 telmisartan 40 mg tablet 80 mg PO HS RF: 0 lutein 20 mg Tablet 20 mg PO DAILY RF: 0 Discontinued pravastatin 80 mg tablet 80 mg PO DAILY Qty: 30 RF: 0 Discharge Orders: Discharge Order (Routine); Ordered 03/07/21 Ordered By: Tuan Falk Admission Data Admit Date/Time: 03/02/21 19:03 Attending Provider: Tuan Falk Admit Provider: Kayla Gates Primary Care Provider: Raghu Armenta Other Providers: Kayla Gates ; Andi Ayers Other Interventions: Discharge Summary Assessment (RN) Last Done: 03/07/21 10:11
== END 2021-03-07 11:31 | disposition home or self-care (01) | DRG 247 ==
LOC: ED 16:57 → SUATTDRO 19:03 → 2S 19:03
DX: E78.5 Hyperlipidemia, unspecified; I12.9 Hypertensive chronic kidney disease with stage 1 through stage 4 chronic kidney disease, or unspecified chronic kidney disease; Z79.890 Hormone replacement therapy; Z88.5 Allergy status to narcotic agent; Z91.013 Allergy to seafood; I21.4 Non-ST elevation (NSTEMI) myocardial infarction; Z91.048 Other nonmedicinal substance allergy status; E03.9 Hypothyroidism, unspecified; F32.A Depression, unspecified; Z79.899 Other long term (current) drug therapy; I25.10 Atherosclerotic heart disease of native coronary artery without angina pectoris; Z20.822 Contact with and (suspected) exposure to COVID-19; D72.829 Elevated white blood cell count, unspecified; F41.1 Generalized anxiety disorder; N18.30 Chronic kidney disease, stage 3 unspecified; Z79.82 Long term (current) use of aspirin